=== PATIENT | female | born 1945 | race Caucasian/White ===

== ENCOUNTER 2020-07-14 12:22 | Inpatient (IN) | payer MEDICARE ==
--- NOTE | 2020-07-14 12:56 | ER Document Report ---
ED General - General Chief Complaint: Altered Mental Status Stated Complaint: AMS Time Seen by Provider: 07/14/20 12:56 Notes: Patient is a 74-year-old female that presents to the emergency department for chief complaint of confusion. states that over the past couple days the patient has been more confused than normal, she apparently had a fall with facial injury several months ago, and has not really recovered from it. She has been having hallucinations at times, and talking about things I do not make any sense so they decided to bring her to the emergency department. Patient states she is aching all over, having some nausea, but no other complaints at this time. Denies feeling short of breath, having fevers, chills or night sweats. She apparently has not had any nausea or vomiting or diarrhea. REVIEW OF SYSTEMS: Other than noted above, the 12 point review of systems was reviewed with the patient and were negative, all pertinent findings are included in the HPI. PHYSICAL EXAMINATION: Vital signs reviewed, nursing noted reviewed. GENERAL: Elderly female, no acute distress HEAD: Atraumatic, normocephalic. EYES: Eyes appear normal, sclera anicteric, conjunctiva are normal. ENT: Moist mucous membranes. NECK: Normal range of motion, supple without lymphadenopathy LUNGS: Breath sounds clear to auscultation bilaterally and equal. No wheezes rales or rhonchi. HEART: Regular rate and rhythm without murmurs EXTREMITIES: Nontender, good range of motion, no pitting or edema. NEUROLOGICAL: No focal neurological deficits. Moves all extremities spontaneously Motor and sensory grossly intact on exam. PSYCH: Patient is alert, but oriented only to person, not to year or location. 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" SKIN: Warm, Dry, normal turgor, no rashes or lesions noted on exposed skin - Related Data Allergies/Adverse Reactions: No Known Allergies Allergy (Unverified 07/14/20 13:31) Home Medications: morphine, gabapentin Past Medical History - Social History Smoking Status: Unknown if Ever Smoked Family History: Reviewed & Not Pertinent Patient has homicidal ideation: No Physical Exam - Vital signs Vitals: Temp Pulse Resp BP Pulse Ox 97.4 F 94 19 174/85 H 94 07/14/20 12:37 07/14/20 12:37 07/14/20 12:37 07/14/20 12:37 07/14/20 12:37 Course - Re-evaluation Re-evalutation: Patient seen and examined, vital signs reviewed, exam patient overall did not appear septic or ill, blood work was obtained, as well as urine testing, she does positive for opiates, she does take morphine at home, which could be contributing to her altered mental status, her urine was not convincing of UTI, some soft signs of it though and will place her on antibiotic, I do not feel the patient needs to be admitted to the hospital, it is possible this could be related to the patient's head injury she had a few months ago, she may need evaluation from psychiatry, but do not feel she needs to be admitted to the hospital. Has been made aware that he needs to come back to the hospital to pick her up to take her home. Prescription for Keflex provided. - Vital Signs Vital signs: Temp Pulse Resp BP Pulse Ox 97.4 F 94 17 148/103 H 97 07/14/20 12:37 07/14/20 12:37 07/14/20 14:53 07/14/20 14:53 07/14/20 14:53 - Laboratory Results Result Diagrams: 07/14/20 12:45 07/14/20 12:45 Laboratory Results Interpreted: 07/14/20 07/14/20 07/14/20 12:45 12:45 13:06 WBC 11.1 H RDW 15.0 H Lymph % (Auto) 7.9 L Absolute Neuts (auto) 9.5 H Seg Neutrophils % 85.8 H Potassium 3.4 L Carbon Dioxide 32 H Total Bilirubin 1.7 H AST 65 H Alkaline Phosphatase 176 H Urine Protein 100 H Urine Ketones 20 H Urine Blood SMALL H Critical Laboratory Results Reviewed: No Critical Results - Radiology Results Critical Radiology Results Reviewed: No Critical Results Discharge - Discharge Clinical Impression: Confusion UTI (urinary tract infection) Qualifiers: Urinary tract infection type: site unspecified Hematuria presence: without hematuria Qualified Code(s): N39.0 - Urinary tract infection, site not specified Condition: Stable Disposition: HOME, SELF-CARE Instructions: Altered Mental Status ([facility]) Additional Instructions: Please follow-up with your primary care physician, take the antibiotic as prescribed. If she is having worsening of her symptoms, or not improving, please return to the emergency department. I would recommend that her pain medications, be cut back, and please discuss this with her primary care physician. Prescriptions: Cephalexin Monohydrate [Keflex 500 mg Capsule] 500 mg PO BID 5 Days #10 capsule
[2020-07-14 13:07] LABS: ABSOLUTE LYMPHOCYTES (AUTO) 0.9 10^3/uL (0.5-4.7); ABSOLUTE MONOCYTES (AUTO) 0.7 10^3/uL (0.1-1.4); ABSOLUTE NEUT (AUTO) 9.5 10^3/uL (1.7-8.2); BASOPHILS % (AUTO) 0.3 % (0-2); EOSINOPHILS % (AUTO) 0.1 % (0-6); HEMATOCRIT 40.3 % (36.0-47.0); HEMOGLOBIN 13.6 g/dL (12.0-15.5); LYMPHOCYTES % (AUTO) 7.9 % (13-45); MEAN CORPUSCULAR HEMOGLOBIN 30.1 pg (27.0-33.4); MEAN CORPUSCULAR HGB CONC 33.7 g/dL (32.0-36.0); MEAN CORPUSCULAR VOLUME 89 fl (80-97); MONOCYTES % (AUTO) 5.9 % (3-13); PLATELET COUNT 221 10^3/uL (150-450); RED BLOOD COUNT 4.51 10^6/uL (3.72-5.28); SEGMENTED NEUTROPHILS % (AUTO) 85.8 % (42-78); TOTAL CELLS COUNTED % (AUTO) 100 %; WHITE BLOOD COUNT 11.1 10^3/uL (4.0-10.5)
[2020-07-14 13:24] LABS: ALBUMIN 4.3 g/dL (3.5-5.0); ALKALINE PHOSPHATASE 176 U/L (38-126); ANION GAP 7 (5-19); ASPARTATE AMINO TRANSFERASE 65 U/L (14-36); BILIRUBIN,DIRECT 0.3 mg/dL (0.0-0.4); BILIRUBIN,TOTAL 1.7 mg/dL (0.2-1.3); BLOOD UREA NITROGEN 11 mg/dL (7-20); CALCIUM 10.2 mg/dL (8.4-10.2); CARBON DIOXIDE 32 mmol/L (22-30); CHLORIDE 102 mmol/L (98-107); GLUCOSE 108 mg/dL (75-110); POTASSIUM 3.4 mmol/L (3.6-5.0); TOTAL PROTEIN 7.6 g/dL (6.3-8.2)
[2020-07-14 13:25] LABS: ALCOHOL < 10 mg/dL (NONE DETECTED)
[2020-07-14] MEDS ORDERED: NORMAL SALINE 500 ML IV ONE (13:26)
[2020-07-14 13:37] LABS: APPEARANCE,URINE CLEAR; BILIRUBIN,URINE NEGATIVE (NEGATIVE); COLOR,URINE YELLOW; GLUCOSE, URINE NEGATIVE (NEGATIVE); KETONES,URINE 20 mg/dL (NEGATIVE); LEUKOCYTE ESTERASE,URINE NEGATIVE (NEGATIVE); NITRITE,URINE NEGATIVE (NEGATIVE); PROTEIN,URINE 100 mg/dL (NEGATIVE); URINE SPECIFIC GRAVITY 1.011; UROBILINOGEN,URINE NEGATIVE mg/dL (<2.0)
[2020-07-14 13:50] LABS: URINE AMPHETAMINES SCREEN NEGATIVE; URINE BARBITURATES SCREEN NEGATIVE; URINE BENZODIAZEPINES SCREEN NEGATIVE; URINE COCAINE SCREEN NEGATIVE; URINE MARIJUANA (THC) SCREEN NEGATIVE; URINE METHADONE SCREEN NEGATIVE; URINE PHENCYCLIDINE SCREEN NEGATIVE
--- NOTE | 2020-07-14 14:28 | RADIOLOGY REPORT (SQ) ---
EXAM DESCRIPTION: CT HEAD WITHOUT IMAGES COMPLETED DATE/TIME: 07/14/2020 2:20 pm REASON FOR STUDY: altered mental status COMPARISON: None. TECHNIQUE: Axial images acquired through the brain without intravenous contrast. Images reviewed wi th bone, brain and subdural windows. Additional sagittal and coronal reconstructions were generated. Images stored on PACS. All CT scanners at this facility use dose modulation, iterative reconstruction, and/or weight based d osing when appropriate to reduce radiation dose to as low as reasonably achievable (ALARA). [facility]: Dose Right [facility]: CareDose [facility]: Dose Right [facility]: Teradose 4D [facility]: Smart Amicus RADIATION DOSE: CT Rad equipment meets quality standard of care and radiation dose reduction techniq ues were employed. CTDIvol: 55.2 mGy. DLP: 1222 mGy-cm. mGy. LIMITATIONS: None. FINDINGS: VENTRICLES: Prominent. CEREBRUM: No masses. No hemorrhage. No midline shift. Areas of low density in the white matter mos t likely due to chronic micro-vascular ischemic change. No evidence for acute infarction. CEREBELLUM: No masses. No hemorrhage. No alteration of density. No evidence for acute infarction. EXTRAAXIAL SPACES: Mild age-related involutional change. No fluid collections. No masses. ORBITS AND GLOBE: No intra- or extraconal masses. Normal contour of globe without masses. CALVARIUM: No fracture. PARANASAL SINUSES: No fluid or mucosal thickening. SOFT TISSUES: No mass or hematoma. OTHER: No other significant finding. IMPRESSION: MILD CHRONIC CHANGES OF ATROPHY AND MICROVASCULAR ISCHEMIA. NO ACUTE PROCESS. EVIDENCE OF ACUTE STROKE: NO. TECHNICAL DOCUMENTATION: JOB ID: [id number] Quality ID # [id number]: Final reports with documentation of one or more dose reduction techniques (e.g., Au tomated exposure control, adjustment of the mA and/or kV according to patient size, use of iterative reconstruction technique) 2010 [employer]- All Rights Reserved Reading location - IP/workstation name: [email or web address]
[2020-07-14] MEDS ORDERED: ONDANSETRON HCL INJ/PF 4 MG/2 ML SDV IV ONE (15:22)
[2020-07-14] MEDS ORDERED: ACETAMINOPHEN 325 MG TABLET PO ONE (15:22)
--- NOTE | 2020-07-14 15:24 | EKG REPORT ---
SEVERITY:- BORDERLINE ECG - SINUS RHYTHM BORDERLINE PROLONGED QT INTERVAL : Confirmed by: Sharif Murray MD 14-Jul-2020 15:22:53
--- NOTE | 2020-07-14 15:42 | RADIOLOGY REPORT (SQ) ---
EXAM DESCRIPTION: CHEST SINGLE VIEW IMAGES COMPLETED DATE/TIME: 07/14/2020 3:34 pm REASON FOR STUDY: weakness COMPARISON: None. EXAM PARAMETERS: NUMBER OF VIEWS: One view. TECHNIQUE: Single frontal radiographic view of the chest acquired. RADIATION DOSE: NA LIMITATIONS: None. FINDINGS: LUNGS AND PLEURA: Prominent interstitial markings most likely chronic interstitial lung di sease. No acute consolidation. No effusions or pneumothorax. MEDIASTINUM AND HILAR STRUCTURES: No masses. Contour normal. HEART AND VASCULAR STRUCTURES: Heart normal in size. Normal vasculature. BONES: No acute findings. HARDWARE: Postsurgical changes in the spine. OTHER: No other significant finding. IMPRESSION: Bilateral interstitial airspace disease most likely chronic. There are no old films dominick ilable for comparison. TECHNICAL DOCUMENTATION: JOB ID: [id number] 2010 [employer]- All Rights Reserved Reading location - IP/workstation name: [email or web address]
[2020-07-14] MEDS ORDERED: TUBERCULIN,PURIF.PROT.DERIV. 5 TU/0.1 ML TEST 1 ML VIAL ID ONE (16:12)
--- NOTE | 2020-07-14 18:00 | PSYCHOLOGICAL NOTE ---
Psych Note - Psych Note Date seen by psych provider: 07/14/20 Time seen by psych provider: 16:58 Psych Note: Reason for Consult: medication recommendations [id number] Patient is a 74 year old female who was admitted to the ED via EMS for altered mental status. Patient is being seen by case management, however behavioral health was consulted for psychiatric medication recommendations. Clinician attempted to engage with patient. She stated she did not know where she was at or where she lives. She denied history of mental health. Collateral: Binu, , 1657 attempted to call patients to obtain collateral. No answer at this time. 1755 attempted to call patients . No answer at this time. Patient was not alert or oriented to self, person, place, time and situation. Mood was euphoric and confused with congruent affect. She denies current SI/HI. Patient did not appear to be responding to internal stimuli as evidenced by fair eye contact and answering questions appropriately when addressed. Insight, judgment and impulse control were poor as evidenced by not knowing where and why she was in the ED. Clinical Presentation: confusion IVC Criteria per [place] GS 122C Dangerous to others Within the relevant past the individual No has inflicted or attempted to inflict or threatened to inflict serious bodily harm on another AND No that there is a reasonable probability that this conduct will be repeated. OR No has acted in such a way as to create a substantial risk of serious bodily harm to another AND No that there is a reasonable probability that this conduct will be repeated. OR No has engaged in extreme destruction of property AND NO that there is a reasonable probability that this conduct will be repeated. Previous episodes of dangerousness to others, when applicable, may be considered when determining reasonable probability of future dangerous conduct. Clear, cogent, and convincing evidence that an individual has committed a homicide in the relevant past is prima facie evidence of dangerousness to others. Dangerous to self Within the relevant past the individual has done any of the following: acted in such a way as to show ALL of the following: No The individual would be unable without care, supervision, and the continued assistance of others not otherwise available, to exercise self- control, judgment, and discretion in the conduct of the individual's daily responsibilities and social relations or to satisfy the individual's need for nourishment, personal or medical care, alf, or self-protection and safety. AND No There is a reasonable probability of the individual suffering serious physical debilitation within the near future unless adequate treatment is given. A showing of behavior that is grossly irrational, of actions that the individual is unable to control, of behavior that is grossly inappropriate to the situation, or of other evidence of severely impaired insight and judgment shall create a prima facie inference that the individual is unable to care for himself or herself. OR No has attempted suicide or threatened suicide AND No that there is a reasonable probability of suicide unless adequate treatment is given OR No has mutilated himself or herself or attempted to mutilate himself or herself AND No that there is a reasonable probability of serious self-mutilation unless adequate treatment is given. NOTE: Previous episodes of dangerousness to self, when applicable, may be considered when determining reasonable probability of physical debilitation, suicide, or self-mutilation. Medication recommendations per [facility] contracted psychiatrist, Dr. aKnu SWEENEY, are as follows: start Depakote 250mg bid, Buspar 5mg bid, and Clonidine 0.1mg at night; decrease Gabapentin 600mg 3 times a day Impression\plan: Patient is cleared from psychiatric services. She was seen in the ED by case management for an altered mental status and confusion. Medication recommendations have been made for assistance. Case management is working with patient and family on placement and additional supports. Dr. Tobias was consulted to care management of this patient; attending physicians in agreement with recommendations and disposition.
[2020-07-14] MEDS: CEPHALEXIN 500 MG CAPSULE PO SCH (18:46)
[2020-07-14] MEDS ORDERED: ONDANSETRON 4 MG TAB.RAPDIS PO ONE (21:12)
[2020-07-14] MEDS ORDERED: ACETAMINOPHEN 325 MG TABLET PO PRN (21:14)
[2020-07-14] MEDS: CLONIDINE HCL 0.1 MG TABLET PO SCH (21:54)
[2020-07-14] MEDS: NYSTATIN TOPICAL POWDER 15 GM TP SCH (21:56)
[2020-07-15 02:25] LABS: C DIFFICILE GDH POSITIVE (NEGATIVE)
[2020-07-15] MEDS ORDERED: MELATONIN 5 MG TABLET PO ONE (02:25)
[2020-07-15] MEDS ORDERED: METRONIDAZOLE 500 MG TABLET PO SCH (06:15)
--- NOTE | 2020-07-15 06:34 | ER Document Report ---
Doctor's Note Notes: 07/15/20 06:32 Patient remains a social hold waiting for possible SNF placement as is no longer able to take care of her at home. Patient has had several loose stools in ED and nursing notes that one looked/smelled like C. difficile so they sent sample for C. difficile which was positive. I evaluated patient and she endorses having diarrhea recently but unable to say for what duration. Patient denies any abdominal pain or fever. Patient well-appearing, vitals remains stable, patient has no abdominal tenderness with completely normal abdominal exam. Started patient on p.o. Flagyl for mild C. difficile infection in the ED and put prescription in her chart for when she is placed. Patient denies any concerns at this time.
[2020-07-15 08:05] LABS: ABSOLUTE MONOCYTES (AUTO) 0.8 10^3/uL (0.1-1.4); ABSOLUTE NEUT (AUTO) 10.2 10^3/uL (1.7-8.2); BASOPHILS % (AUTO) 0.2 % (0-2); HEMATOCRIT 40.8 % (36.0-47.0); HEMOGLOBIN 13.9 g/dL (12.0-15.5); LYMPHOCYTES % (AUTO) 8.5 % (13-45); MEAN CORPUSCULAR VOLUME 88 fl (80-97); MONOCYTES % (AUTO) 6.8 % (3-13); PLATELET COUNT 226 10^3/uL (150-450); RED BLOOD COUNT 4.64 10^6/uL (3.72-5.28); SEGMENTED NEUTROPHILS % (AUTO) 84.5 % (42-78); TOTAL CELLS COUNTED % (AUTO) 100 %; WHITE BLOOD COUNT 12.1 10^3/uL (4.0-10.5)
[2020-07-15 08:26] LABS: ANION GAP 13 (5-19); BLOOD UREA NITROGEN 11 mg/dL (7-20); CALCIUM 9.9 mg/dL (8.4-10.2); CARBON DIOXIDE 30 mmol/L (22-30); CHLORIDE 99 mmol/L (98-107); GLUCOSE 101 mg/dL (75-110); POTASSIUM 3.1 mmol/L (3.6-5.0)
[2020-07-15] MEDS: NYSTATIN TOPICAL POWDER 15 GM TP SCH ×3 (10:37→18:15)
[2020-07-15] MEDS: BUSPIRONE HCL 10 MG TABLET PO SCH ×2 (10:38→18:15)
[2020-07-15] MEDS: CEPHALEXIN 500 MG CAPSULE PO SCH ×2 (10:38→18:15)
[2020-07-15] MEDS: DIVALPROEX SODIUM 250 MG TABLET.DR PO SCH ×2 (10:38→18:14)
[2020-07-15] MEDS ORDERED: POTASSI CL 20 MEQ/50 ML RIDER 20 MEQ/50 ML RTUPB IV ONE (11:55)
[2020-07-15] MEDS ORDERED: VANCOMYCIN HCL INJ 500 MG VIAL PO ONE (12:06)
[2020-07-15] MEDS ORDERED: POTASSIUM CHLORIDE 20 MEQ PACKET PO ONE (13:27)
[2020-07-15] MEDS: CLONIDINE HCL 0.1 MG TABLET PO SCH (21:20)
[2020-07-16] MEDS: BUSPIRONE HCL 10 MG TABLET PO SCH ×2 (11:04→17:51)
[2020-07-16] MEDS: CEPHALEXIN 500 MG CAPSULE PO SCH ×2 (11:04→17:52)
[2020-07-16] MEDS: DIVALPROEX SODIUM 250 MG TABLET.DR PO SCH ×2 (11:04→17:52)
[2020-07-16] MEDS: NYSTATIN TOPICAL POWDER 15 GM TP SCH ×3 (11:04→19:04)
[2020-07-16] MEDS ORDERED: NORMAL SALINE 1000 ML 1,000 ML IV ONE (18:37)
--- NOTE | 2020-07-16 18:40 | ER Document Report ---
Doctor's Note Notes: 07/16/20 18:34 Patient resting comfortably today. P.o. intake has not been very good today although patient has eaten and patient has had a bowel movement today as well patient's laboratories most recently showed that there was a potassium of 3.1. Plan is to replace potassium for patient intravenously along with some fluids and the repeat test of CBC and CMP tomorrow. Continue to treat patient for her C. difficile induced diarrhea and continue to maintain patient until she can receive placement in a group home home facility.
[2020-07-16] MEDS ORDERED: POTASSI CL 20 MEQ/50 ML RIDER 20 MEQ/50 ML RTUPB IV SCH (18:45)
[2020-07-16] MEDS ORDERED: POTASSIUM CHLORIDE 10 MEQ TABLET.ER PO ONE (19:44)
[2020-07-16] MEDS ORDERED: POTASSIUM CHLORIDE 10 MEQ TABLET.ER PO SCH (20:00)
[2020-07-16] MEDS: CLONIDINE HCL 0.1 MG TABLET PO SCH (22:08)
[2020-07-17 06:55] LABS: ALBUMIN 4.3 g/dL (3.5-5.0); ALKALINE PHOSPHATASE 143 U/L (38-126); ANION GAP 10 (5-19); ASPARTATE AMINO TRANSFERASE 86 U/L (14-36); BILIRUBIN,DIRECT 0.3 mg/dL (0.0-0.4); BILIRUBIN,TOTAL 1.4 mg/dL (0.2-1.3); BLOOD UREA NITROGEN 22 mg/dL (7-20); CALCIUM 9.8 mg/dL (8.4-10.2); CARBON DIOXIDE 32 mmol/L (22-30); CHLORIDE 104 mmol/L (98-107); GLUCOSE 106 mg/dL (75-110); POTASSIUM 3.2 mmol/L (3.6-5.0)
[2020-07-17] MEDS: BUSPIRONE HCL 10 MG TABLET PO SCH ×2 (10:28→18:37)
[2020-07-17] MEDS: NYSTATIN TOPICAL POWDER 15 GM TP SCH ×3 (10:28→18:42)
[2020-07-17] MEDS: CEPHALEXIN 500 MG CAPSULE PO SCH (10:29)
[2020-07-17] MEDS: DIVALPROEX SODIUM 250 MG TABLET.DR PO SCH ×3 (10:29→19:09)
--- NOTE | 2020-07-17 11:06 | ER Document Report ---
Doctor's Note Notes: 07/17/20 11:01 Patient sleeping and resting comfortably at this time. Patient continues to have loose diarrheal stools we will repeat a stool specimen today to see if patient is still positive for C. difficile. Patient has completed her antibiotic treatment for such. Patient has a low potassium and has been receiving p.o. potassium supplement. Patient has a laboratory evaluation CBC and CMP this a.m. We will also reach out to case management regarding placement of this patient in a long-term facility. 07/17/20 15:08 Nurse reported to me that patient's laboratories have some of them resulted showing that patient has a 16,000 white count and a fever, and dehydration. Patient's urine has been collected that shows a cloudy urine. Patient is currently having a sepsis work-up including blood cultures x2 lactic acid IV bolus of normal saline and IV antibiotics of vancomycin and cefepime. Presumptive diagnosis at this time is urinary tract infection. An acute abdominal series has been ordered to determine patient's GI tract is moving and without any kind of obstructive pattern and chest x-ray to determine if there is any pneumonia. Patient is having a failure to thrive and not been taking p.o. well over the last 24 hours patient has a low potassium was today of 3.2 slight improvement from yesterday of 3.1. I will also add potassium supplement to patient's IV fluids. Plan is to discuss once laboratory results have been and x-ray results have been obtained to discuss with the hospitalist service about admitting patient to an inpatient status at this time. Patient is on a social hold due to her stating he cannot manage his at home anymore she has dementia and her C. difficile diarrhea became too much for him too much of a burden for him to manage her at home so patient was placed in the ED pending group home facility transfer once accepted. 07/17/20 17:52 Laboratory results have shown that there is no evidence for urinary tract infection or pneumonia on chest x-ray. Patient does have an elevated white blood cell count and a temperature spike today. Most likely this is due to her C. difficile which is still present. Discussed case with the inpatient hospitalistand Dr. Cameron has accepted patient as a inpatient admit to medical floor. Discharge - Discharge Clinical Impression: Confusion, Clostridium difficile infection, Failure to thrive, Leukocytosis UTI (urinary tract infection) Qualifiers: Urinary tract infection type: site unspecified Hematuria presence: without hematuria Qualified Code(s): N39.0 - Urinary tract infection, site not specified Condition: Fair Disposition: ADMITTED INPATIENT Admitting Provider: Rakesh Unit Admitted: Medical Floor Instructions: Altered Mental Status ([facility]) Additional Instructions: C. (Clostridium) Difficile Infection C. difficile bacteria are everywhere - in soil, air, water, human and animal feces, and on most surfaces. The bacteria don't create problems until they grow in abnormally large numbers in the intestinal tract of people taking antibiotics or other antimicrobial drugs. Then, C. difficile can cause symptoms ranging from diarrhea to life-threatening inflammations of the colon. According to the Centers for Disease Control and Prevention, each year in the [place] C. difficile is responsible for tens of thousands of cases of diarrhea and at least 5,000 deaths. And the problem is getting worse. The number of C. difficile infections doubled between 1992 and 2002, with most of the increase coming after 1999. Your intestinal tract contains hundreds of kinds of bacteria (intestinal sarah). Many are essential, helping to synthesize certain vitamins and stimulating the immune system. And some play a hubbard role in suppressing the growth of harmful organisms. But when you take an antibiotic to treat an infection, it often destroys these beneficial bacteria as well as the bacteria that's causing your illness. Without enough healthy bacteria, dangerous pathoge ns such as C. difficile can quickly grow out of control. Once it takes hold, C. difficile can produce two virulent toxins that attack the lining of the intestine. The toxins destroy cells and produce pseudomembranes - telltale patches (plaques) of inflammatory cells and decaying cellular debris on the interior surface of the colon. Almost any antibiotic can cause harmful bacteria to proliferate in the intestine, but ampicillin, amoxicillin, clindamycin, fluoroquinolones and cephalosporins are most often implicated in C. difficile infections. The use of broad-spectrum drugs that target a wide range of bacteria and the taking of antibiotics for a prolonged period increase the chance of infection. Other antimicrobials, including antiviral and antifungal drugs, and chemotherapy medic ations also can lead to an increased risk of infection with C. difficile. It's also a growing problem among otherwise healthy people. And although the infection can usually be controlled with antibiotics, virulent strains of C. difficile are now appearing that resist treatment with common medications. Please follow-up with your primary care physician, take the antibiotics as prescribed. If she is having worsening of her symptoms, belly pain, bloody stool, or frequent stool, worsening confusion,, or not improving, please return to the emergency department. I would recommend that her pain medications, be cut back, and please discuss this with her primary care physician. Prescriptions: Metronidazole [Flagyl 500 mg Tablet] 500 mg PO Q8H 14 Days #42 tablet Cephalexin Monohydrate [Keflex 500 mg Capsule] 500 mg PO BID 5 Days #10 capsule
[2020-07-17 12:38] LABS: ABSOLUTE LYMPHOCYTES (AUTO) 1.6 10^3/uL (0.5-4.7); ABSOLUTE MONOCYTES (AUTO) 1.9 10^3/uL (0.1-1.4); ABSOLUTE NEUT (AUTO) 13.1 10^3/uL (1.7-8.2); BASOPHILS % (AUTO) 0.2 % (0-2); HEMATOCRIT 52.6 % (36.0-47.0); LYMPHOCYTES % (AUTO) 9.5 % (13-45); MEAN CORPUSCULAR HEMOGLOBIN 29.7 pg (27.0-33.4); MEAN CORPUSCULAR HGB CONC 33.3 g/dL (32.0-36.0); MEAN CORPUSCULAR VOLUME 89 fl (80-97); MONOCYTES % (AUTO) 11.3 % (3-13); PLATELET COUNT 159 10^3/uL (150-450); RED CELL DISTRIBUTION WIDTH 15.4 % (11.5-14.0); TOTAL CELLS COUNTED % (AUTO) 100 %; WHITE BLOOD COUNT 16.6 10^3/uL (4.0-10.5)
[2020-07-17 12:40] LABS: HEMOGLOBIN 17.5 g/dL (12.0-15.5)
[2020-07-17] MEDS ORDERED: VANCOMYCIN HCL INJ 1000 MG VIAL IV ONE (15:02)
[2020-07-17] MEDS ORDERED: CEFEPIME 2 GM/D5W RTU 2 GM/50 ML RTUPB IV ONE ×2 (15:02→18:28)
[2020-07-17] MEDS ORDERED: ACETAMINOPHEN 1,000 MG/100 ML RTUPB IV ONE ×2 (15:06→18:30)
[2020-07-17 15:46] LABS: APPEARANCE,URINE SLIGHTLY-CLOUDY; BILIRUBIN,URINE NEGATIVE (NEGATIVE); COLOR,URINE AMBER; GLUCOSE, URINE NEGATIVE (NEGATIVE); KETONES,URINE TRACE mg/dL (NEGATIVE); LEUKOCYTE ESTERASE,URINE NEGATIVE (NEGATIVE); NITRITE,URINE NEGATIVE (NEGATIVE); PROTEIN,URINE >=500 mg/dL (NEGATIVE); URINE SPECIFIC GRAVITY 1.025; UROBILINOGEN,URINE NEGATIVE mg/dL (<2.0)
--- NOTE | 2020-07-17 15:46 | RADIOLOGY REPORT (SQ) ---
EXAM DESCRIPTION: ACUTE ABDOMEN SERIES IMAGES COMPLETED DATE/TIME: 07/17/2020 2:22 pm REASON FOR STUDY: fever/dehydration/failure to thrive/ diarrhea COMPARISON: None. NUMBER OF VIEWS: Three views. TECHNIQUE: Frontal chest, supine abdomen and upright/decubitus abdomen radiographic images acquired. LIMITATIONS: None. FINDINGS: CHEST: Lungs clear of infiltrates. FREE AIR: None. No abnormal gas collections. BOWEL GAS PATTERN: Nonobstructive pattern. No dilated loops or air fluid levels. CALCIFICATIONS: No suspicious calcifications. HARDWARE: Posterior fusion throughout the entire thoracic and lumbar spine to the sacrum and pelvis. No evidence of hardware fracture or loosening. SOFT TISSUES: No gross mass or suggestion of organomegaly. BONES: No acute fracture. No worrisome bone lesions. OTHER: No other significant finding. IMPRESSION: NO RADIOGRAPHIC EVIDENCE FOR ACUTE ABDOMINAL DISEASE. TECHNICAL DOCUMENTATION: JOB ID: [id number] 2010 [employer]- All Rights Reserved Reading location - IP/workstation name: [email or web address]
[2020-07-17] MEDS ORDERED: CEFEPIME 1 GM/D5W RTU 0 GM/0 ML RTUPB IV ONE (17:56)
[2020-07-17] MEDS ORDERED: VANCOMYCIN HCL INJ 1000 MG VIAL ONE (17:58)
[2020-07-17] MEDS: VANCOMYCIN HCL INJ 500 MG VIAL PO SCH (18:33)
[2020-07-17] MEDS ORDERED: DEXTROSE 5%-1/2 NORMAL SALINE 1,000 ML IV ONE (18:38)
[2020-07-17] MEDS: NORMAL SALINE 1000 ML 1,000 ML IV PRN ×2 (18:45→21:18)
--- NOTE | 2020-07-17 19:15 | PDOC H&P ---
History of Present Illness Admission Date/PCP: 07/17/20 18:07 Patient complains of: none History of Present Illness: BRIA ENRIQUEZ is a 74 year old female with history of dementia, falls who was brought in to the ED on 07/14 for confusion. She had a fall with facial injury several months ago, and has not really recovered from it per spouse. She had been having hallucinations, aching, nausea. In the ED she is diagnosed with C. diff infection, and since her spouse is unable to take care of her, she has been an ED hold awaiting placement. Clinically she was noted to be deteriorating today, with neutrophilia, fever of 100F, hence after treatment with IV Vanco /cefepime and IVF, she is requested admission. Past Medical History Medical History: Other - unable to obtain from patient/chart outside of dementia Endocrine Medical History: Reports: Diabetes Mellitus Type 2 Past Surgical History Past Surgical History: Reports: Other - unable to obtain Social History Smoking Status: Unknown if Ever Smoked Past Social History Note: unable to obtain from patient or spouse Family History Family History: Reviewed & Not Pertinent Family History: unable to obtain from patient or family Parental Family History Reviewed: No - patient unable to provide Children Family History Reviewed: Unknown Sibling(s) Family History Reviewed.: Unknown Medication/Allergy Home Medications: Cephalexin Monohydrate [Keflex 500 mg Capsule] 500 mg PO BID 5 Days #10 capsule 07/14/20 Gabapentin 600 mg PO Q4H 07/14/20 Gabapentin 600 mg PO QHS 07/14/20 Morphine Sulfate [Ms Contin] 30 mg PO Q12H 07/14/20 Metronidazole [Flagyl 500 mg Tablet] 500 mg PO Q8H 14 Days #42 tablet 07/15/20 Allergies/Adverse Reactions: No Known Allergies Allergy (Unverified 07/14/20 13:31) Review of Systems ROS unobtainable: Due to mental status Physical Exam Vital Signs: Temp Pulse Resp BP Pulse Ox 97.7 F 110 H 20 149/77 H 100 07/17/20 18:09 07/17/20 18:09 07/17/20 18:09 07/17/20 18:09 07/17/20 18:09 Intake & Output 07/16/20 07/17/20 07/18/20 06:59 06:59 06:59 Intake Total 10 Balance 10 General appearance: PRESENT: no acute distress Head exam: PRESENT: atraumatic, other - facial bruising at maxillary region bilaterally Eye exam: PRESENT: PERRLA Mouth exam: PRESENT: moist Teeth exam: PRESENT: poor dentation Throat exam: PRESENT: other - unable to assess, patient will not open mouth wide enough Neck exam: ABSENT: tenderness Respiratory exam: PRESENT: clear to auscultation zara Cardiovascular exam: PRESENT: RRR Pulses: PRESENT: normal carotid pulses Vascular exam: PRESENT: normal capillary refill GI/Abdominal exam: PRESENT: distended, hypoactive bowel sounds, tenderness Extremities exam: PRESENT: +1 edema Musculoskeletal exam: PRESENT: full ROM Neurological exam: PRESENT: awake, other - unable to assess neuro exam, patient does not follow basic commands Psychiatric exam: PRESENT: flat affect Skin exam: PRESENT: pallor Results Laboratory Results: 07/17/20 11:49 07/17/20 06:08 07/17/20 07/17/20 07/17/20 06:08 06:08 08:57 WBC Cancelled Cancelled RBC Cancelled Cancelled Hgb Cancelled Cancelled Hct Cancelled Cancelled MCV Cancelled Cancelled MCH Cancelled Cancelled MCHC Cancelled Cancelled RDW Cancelled Cancelled Plt Count Cancelled Cancelled Seg Neutrophils % Cancelled Cancelled Sodium 146.0 H Potassium 3.2 L Chloride 104 Carbon Dioxide 32 H Anion Gap 10 BUN 22 H Creatinine 1.14 Est GFR ( Amer) 56 L Glucose 106 Lactic Acid Calcium 9.8 Total Bilirubin 1.4 H AST 86 H Alkaline Phosphatase 143 H Total Protein 8.0 Albumin 4.3 Urine Color Urine Appearance Urine pH Ur Specific [place] Urine Protein Urine Glucose (UA) Urine Ketones Urine Blood Urine Nitrite Ur Leukocyte Esterase Urine WBC (Auto) Urine RBC (Auto) 07/17/20 07/17/20 07/17/20 11:49 15:04 15:50 WBC 16.6 H RBC 5.90 H Hgb 17.5 H D Hct 52.6 H MCV 89 MCH 29.7 MCHC 33.3 RDW 15.4 H Plt Count 159 Seg Neutrophils % 79.0 H Sodium Potassium Chloride Carbon Dioxide Anion Gap BUN Creatinine Est GFR ( Amer) Glucose Lactic Acid 1.8 Calcium Total Bilirubin AST Alkaline Phosphatase Total Protein Albumin Urine Color JAME Urine Appearance SLIGHTLY-CLOUDY Urine pH 6.0 Ur Specific [place] 1.025 Urine Protein >=500 H Urine Glucose (UA) NEGATIVE Urine Ketones TRACE H Urine Blood SMALL H Urine Nitrite NEGATIVE Ur Leukocyte Esterase NEGATIVE Urine WBC (Auto) 3 Urine RBC (Auto) 3 Impressions: Head CT 07/14/20 13:44 IMPRESSION: MILD CHRONIC CHANGES OF ATROPHY AND MICROVASCULAR ISCHEMIA. NO ACUTE PROCESS. EVIDENCE OF ACUTE STROKE: NO. Chest X-Ray 07/14/20 15:16 IMPRESSION: Bilateral interstitial airspace disease most likely chronic. There are no old films available for comparison. Acute Abdomen Series 07/17/20 15:07 IMPRESSION: NO RADIOGRAPHIC EVIDENCE FOR ACUTE ABDOMINAL DISEASE. Assessment and Plan - Diagnosis (1) Acute metabolic encephalopathy Is this a current diagnosis for this admission?: Yes (2) Traumatic brain injury Qualifiers: Encounter type: sequela Is this a current diagnosis for this admission?: No (3) Clostridium difficile infection Is this a current diagnosis for this admission?: Yes (4) Failure to thrive Qualifiers: Failure to thrive age range: in adult Qualified Code(s): R62.7 - Adult failure to thrive Is this a current diagnosis for this admission?: Yes - Plan Summary Summary: 74 yo F with encephalopathy since her fall a few months ago, remains as a ER hold and clinically worsening, hence admission is requested 1. Dehydration, failure to thrive with C. diff colitis: PO vancomycin, PPN started 2. Chronic pain? awaiting discussion with family to obtain home meds in 3. TBI/dementia: patient unable to participate in her care I have attempted to reach spouse x2 and unable to obtain any additional history other than what is seen on the records and noted by the ED physician. Patient is unable to participate in her care - Time Time Spent with patient: 15-24 minutes Anticipated Discharge Disposition: Nursing Home Facility Anticipated Discharge Timeframe: within 72 hours - Inpatient Certification Medical Necessity: Need For IV Fluids, Risk of Complication if Not Cared For in Hospital
[2020-07-17] MEDS ORDERED: LABETALOL HCL INJ 20 MG/4 ML DISP.SYRIN IV PRN (22:05)
[2020-07-17] MEDS ORDERED: VANCOMYCIN HCL INJ 500 MG VIAL PO ONE (22:45)
[2020-07-17] MEDS: POTASSI CL 20 MEQ/50 ML RIDER 20 MEQ/50 ML RTUPB IV SCH ×2 (22:58→23:02)
[2020-07-17] MEDS: CLONIDINE HCL 0.1 MG TABLET PO SCH (22:59)
[2020-07-17] MEDS ORDERED: VANCOMYCIN HCL INJ 500 MG VIAL ONE (23:46)
[2020-07-18] MEDS: POTASSI CL 20 MEQ/50 ML RIDER 20 MEQ/50 ML RTUPB IV SCH ×2 (03:07→03:52)
[2020-07-18] MEDS: ENOXAPARIN SODIUM INJ 40 MG/0.4 ML DISP.SYRIN SUBCUT SCH ×2 (03:52→10:47)
[2020-07-18 05:58] LABS: ALBUMIN 3.1 g/dL (3.5-5.0); ALKALINE PHOSPHATASE 87 U/L (38-126); ANION GAP 5 (5-19); ASPARTATE AMINO TRANSFERASE 63 U/L (14-36); BILIRUBIN,DIRECT 0.3 mg/dL (0.0-0.4); BILIRUBIN,TOTAL 1.4 mg/dL (0.2-1.3); BLOOD UREA NITROGEN 25 mg/dL (7-20); CALCIUM 8.7 mg/dL (8.4-10.2); CARBON DIOXIDE 27 mmol/L (22-30); CHLORIDE 112 mmol/L (98-107); GLUCOSE 106 mg/dL (75-110); POTASSIUM 3.5 mmol/L (3.6-5.0); TOTAL PROTEIN 6.1 g/dL (6.3-8.2)
[2020-07-18 06:03] LABS: ABSOLUTE LYMPHOCYTES (AUTO) 1.3 10^3/uL (0.5-4.7); ABSOLUTE MONOCYTES (AUTO) 0.8 10^3/uL (0.1-1.4); ABSOLUTE NEUT (AUTO) 8.6 10^3/uL (1.7-8.2); BASOPHILS % (AUTO) 0.2 % (0-2); EOSINOPHILS % (AUTO) 0.4 % (0-6); HEMATOCRIT 43.4 % (36.0-47.0); LYMPHOCYTES % (AUTO) 12.1 % (13-45); MEAN CORPUSCULAR HEMOGLOBIN 29.9 pg (27.0-33.4); MEAN CORPUSCULAR HGB CONC 33.3 g/dL (32.0-36.0); MEAN CORPUSCULAR VOLUME 90 fl (80-97); MONOCYTES % (AUTO) 7.5 % (3-13); PLATELET COUNT 112 10^3/uL (150-450); RED BLOOD COUNT 4.83 10^6/uL (3.72-5.28); RED CELL DISTRIBUTION WIDTH 15.1 % (11.5-14.0); SEGMENTED NEUTROPHILS % (AUTO) 79.8 % (42-78); TOTAL CELLS COUNTED % (AUTO) 100 %; WHITE BLOOD COUNT 10.8 10^3/uL (4.0-10.5)
[2020-07-18 06:07] LABS: HEMOGLOBIN 14.5 g/dL (12.0-15.5)
[2020-07-18] MEDS: VANCOMYCIN HCL INJ 500 MG VIAL PO SCH ×4 (06:19→17:27)
[2020-07-18] MEDS: NYSTATIN TOPICAL POWDER 15 GM TP SCH ×3 (10:47→17:27)
[2020-07-18] MEDS: BUSPIRONE HCL 10 MG TABLET PO SCH ×2 (10:47→17:26)
[2020-07-18] MEDS: DIVALPROEX SODIUM 250 MG TABLET.DR PO SCH ×2 (10:47→17:26)
--- NOTE | 2020-07-18 13:28 | PDOC PROGRESS REPORT ---
Subjective Date:: 07/18/20 Subjective:: patient has no complaints, RN has no concerns Reason For Visit: C. DIFF COLITIS Physical Exam Vital Signs: Temp Pulse Resp BP Pulse Ox 98.1 F 91 17 170/89 H 96 07/18/20 10:50 07/18/20 10:50 07/18/20 10:50 07/18/20 10:50 07/18/20 10:50 Intake & Output 07/17/20 07/18/20 07/19/20 06:59 06:59 06:59 Intake Total 1050 1100 Balance 1050 1100 General appearance: PRESENT: no acute distress Respiratory exam: PRESENT: clear to auscultation zara Cardiovascular exam: PRESENT: RRR GI/Abdominal exam: PRESENT: tenderness - generalized with voluntary guarding Psychiatric exam: PRESENT: flat affect Results Laboratory Results: 07/18/20 05:20 07/18/20 05:20 07/17/20 07/17/20 07/18/20 15:04 15:50 05:20 WBC 10.8 H RBC 4.83 Hgb 14.5 D Hct 43.4 MCV 90 MCH 29.9 MCHC 33.3 RDW 15.1 H Plt Count 112 L Seg Neutrophils % 79.8 H Sodium Potassium Chloride Carbon Dioxide Anion Gap BUN Creatinine Est GFR ( Amer) Glucose Lactic Acid 1.8 Calcium Phosphorus Magnesium Total Bilirubin AST Alkaline Phosphatase Total Protein Albumin Urine Color JAME Urine Appearance SLIGHTLY-CLOUDY Urine pH 6.0 Ur Specific [place] 1.025 Urine Protein >=500 H Urine Glucose (UA) NEGATIVE Urine Ketones TRACE H Urine Blood SMALL H Urine Nitrite NEGATIVE Ur Leukocyte Esterase NEGATIVE Urine WBC (Auto) 3 Urine RBC (Auto) 3 07/18/20 05:20 WBC RBC Hgb Hct MCV MCH MCHC RDW Plt Count Seg Neutrophils % Sodium 143.6 Potassium 3.5 L Chloride 112 H Carbon Dioxide 27 Anion Gap 5 BUN 25 H Creatinine 0.87 Est GFR ( Amer) > 60 Glucose 106 Lactic Acid Calcium 8.7 Phosphorus 3.0 Magnesium 1.9 Total Bilirubin 1.4 H AST 63 H Alkaline Phosphatase 87 Total Protein 6.1 L Albumin 3.1 L Urine Color Urine Appearance Urine pH Ur Specific [place] Urine Protein Urine Glucose (UA) Urine Ketones Urine Blood Urine Nitrite Ur Leukocyte Esterase Urine WBC (Auto) Urine RBC (Auto) 07/18/20 05:20 CK-MB (CK-2) 2.31 Impressions: Head CT 07/14/20 13:44 IMPRESSION: MILD CHRONIC CHANGES OF ATROPHY AND MICROVASCULAR ISCHEMIA. NO ACUTE PROCESS. EVIDENCE OF ACUTE STROKE: NO. Chest X-Ray 07/14/20 15:16 IMPRESSION: Bilateral interstitial airspace disease most likely chronic. There are no old films available for comparison. Acute Abdomen Series 07/17/20 15:07 IMPRESSION: NO RADIOGRAPHIC EVIDENCE FOR ACUTE ABDOMINAL DISEASE. Assessment and Plan - Diagnosis (1) Acute metabolic encephalopathy Is this a current diagnosis for this admission?: Yes (2) Traumatic brain injury Qualifiers: Encounter type: sequela Is this a current diagnosis for this admission?: No (3) Clostridium difficile infection Is this a current diagnosis for this admission?: Yes (4) Failure to thrive Qualifiers: Failure to thrive age range: in adult Qualified Code(s): R62.7 - Adult failure to thrive Is this a current diagnosis for this admission?: Yes - Plan Summary Summary: 74 yo F with encephalopathy since her fall a few months ago, remains as a ER hold and clinically worsening, hence admission is requested 1. Dehydration, failure to thrive with C. diff colitis: PO vancomycin, PPN started, clinically she appears a little better today 2. Chronic pain: attempted to reach spouse x2 today, going straight to 3. TBI/dementia: patient unable to participate in her care, needs SNF placement - Time Time Spent with patient: 15-24 minutes Anticipated Discharge Disposition: Longterm Facility Anticipated Discharge Timeframe: within 48 hours
[2020-07-18 14:01] LABS: C DIFFICILE GDH POSITIVE (NEGATIVE)
[2020-07-18] MEDS: HYDRALAZINE HCL 10 MG TABLET PO SCH (17:26)
[2020-07-19] MEDS: VANCOMYCIN HCL INJ 500 MG VIAL PO SCH ×4 (00:02→18:37)
[2020-07-19] MEDS: HYDRALAZINE HCL 10 MG TABLET PO SCH ×4 (00:03→18:35)
[2020-07-19] MEDS: CLONIDINE HCL 0.1 MG TABLET PO SCH (00:03)
[2020-07-19] MEDS ORDERED: IPRATROPIUM/ALBUTEROL 0.5-2.5 MG/3 ML AMPUL NEB PRN (01:24)
[2020-07-19] MEDS: ENOXAPARIN SODIUM INJ 40 MG/0.4 ML DISP.SYRIN SUBCUT SCH (09:23)
[2020-07-19] MEDS: NYSTATIN TOPICAL POWDER 15 GM TP SCH ×3 (09:32→18:35)
[2020-07-19] MEDS: DIVALPROEX SODIUM 250 MG TABLET.DR PO SCH ×2 (09:32→18:34)
[2020-07-19] MEDS: BUSPIRONE HCL 10 MG TABLET PO SCH ×2 (09:32→18:34)
[2020-07-19] MEDS: GABAPENTIN 300 MG CAPSULE PO SCH (13:36)
[2020-07-19] MEDS ORDERED: DEXTROSE 40% GEL 15 GM TUBE PO PRN ×2 (20:33)
[2020-07-19] MEDS ORDERED: GLUCAGON,HUMAN RECOMB 1 MG INJ IM PRN (20:33)
[2020-07-19] MEDS ORDERED: DEXTROSE 50%-WATER 25 GM/50 ML DISP.SYRIN IV PRN ×2 (20:33)
--- NOTE | 2020-07-19 20:46 | PDOC PROGRESS REPORT ---
Subjective Date:: 07/19/20 Subjective:: The patient is a 74-year-old female with a limited past medical history due to her altered mental status and family member being poor historian, but presumed to have DM2, hypertension, GERD, iron deficiency anemia, possibly CHF, and opiate dependent chronic pain based on her home medication regiment. Patient presented to the emergency department 07/14/2024 chronic altered mental status that had progressively worsened over the last year or more resulting in the patient's 's inability to care for her at home. She remained as a social hold while awaiting SNF placement when she became acutely ill with C. difficile diarrhea. The patient was seen on morning rounds. She is found resting in bed, comfortably, on room air. She is alert and oriented to self, the [facility], "[facility]", year 1998, and [employer] [place]; does not reorientate easily and becomes flustered when attempting to correct her orientation status. Patient was noted to be restless; frequently lifting her arms and legs into the air. Stops mid sentence and mid word frequently; resumes speaking though on a different thought course. Very difficult to follow. She does appear to be comfortable but is not noted to be in any acute distress at this time. Attempted to call patient's husbands; no answer. Discussed plan of care with nursing. Reason For Visit: C. DIFF COLITIS Physical Exam Vital Signs: Temp Pulse Resp BP Pulse Ox 97.8 F 93 14 146/80 H 96 07/19/20 11:20 07/19/20 11:51 07/19/20 11:51 07/19/20 11:20 07/19/20 11:51 Intake & Output 07/18/20 07/19/20 07/20/20 06:59 06:59 06:59 Intake Total 1050 1360 240 Balance 1050 1360 240 Weight 83 kg General appearance: PRESENT: no acute distress, cooperative, obese, well-d eveloped, well-nourished Head exam: PRESENT: atraumatic, normocephalic Eye exam: PRESENT: conjunctiva pink, EOMI, PERRLA. ABSENT: scleral icterus Mouth exam: PRESENT: moist, tongue midline Teeth exam: PRESENT: poor dentation Respiratory exam: PRESENT: clear to auscultation zara, symmetrical, unlabored, other - room air. ABSENT: rales, rhonchi, wheezes Cardiovascular exam: PRESENT: RRR, +S1, +S2. ABSENT: diastolic murmur, rubs, systolic murmur Pulses: PRESENT: normal dorsalis pedis pul Vascular exam: PRESENT: normal capillary refill GI/Abdominal exam: PRESENT: normal bowel sounds, soft. ABSENT: distended, guarding, mass, organolmegaly, rebound, tenderness - none elicited on palpation Rectal exam: PRESENT: deferred Extremities exam: PRESENT: full ROM - Moves all extremities spontaneously. ABSENT: calf tenderness, clubbing, pedal edema Neurological exam: PRESENT: alert, awake, oriented to person, CN II-XII grossly intact, other - Disoriented, expressive aphasia, restless; encephalopathic. ABSENT: oriented to place, oriented to time, oriented to situation, motor sensory deficit Psychiatric exam: PRESENT: appropriate affect, normal mood. ABSENT: homicidal ideation, suicidal ideation Skin exam: PRESENT: dry, intact, warm. ABSENT: cyanosis, rash Results Laboratory Results: 07/18/20 05:20 07/18/20 05:20 07/18/20 05:20 CK-MB (CK-2) 2.31 Impressions: Head CT 07/14/20 13:44 IMPRESSION: MILD CHRONIC CHANGES OF ATROPHY AND MICROVASCULAR ISCHEMIA. NO ACU TE PROCESS. EVIDENCE OF ACUTE STROKE: NO. Chest X-Ray 07/14/20 15:16 IMPRESSION: Bilateral interstitial airspace disease most likely chronic. There are no old films available for comparison. Acute Abdomen Series 07/17/20 15:07 IMPRESSION: NO RADIOGRAPHIC EVIDENCE FOR ACUTE ABDOMINAL DISEASE. Assessment and Plan - Diagnosis (1) Acute metabolic encephalopathy Is this a current diagnosis for this admission?: Yes Plan: Unclear etiology. Patient was a social hold x3 days prior to admission for C. difficile infection. Per ED and mental health provider notes; patient presented to the ED with increased altered mental status and confusion that had been worsening over the previous several months to years. Head CT revealed chronic microvascular ischemic changes but no acute findings. Unfortunately, patient is not a candidate for MRI due to spinal hardware; unable to determine type and family members or not aware of what hospital this was placed as we cannot request records. Possibly related to acute infectious process and hospital psychosis in patient with underlying dementia and mental health disorders (medications for anxiety and depression on her home med list). We will follow up on CBC and BMP. In addition, will check TSH, B12, and cortisol. We will repeat head CT as it has been greater than 72 hours since the previous and so we may now see evidence of subtle ischemic changes if early in the acute phase upon presentation. Continue treatment for C. difficile infection. ABG to evaluate for subtle hypercapnia and/or acidosis that may be contributing to her mental status. Patient has also not been receiving her home opiate medications; no clear evidence for opiate withdrawal, however, this may also be contributing. Therefore, will resume low-dose scheduled morphine. Fall precautions. Supportive care. Discharge planning consulted; anticipate patient will require long-term placement in a memory care facility. (2) Clostridioides difficile infection Is this a current diagnosis for this admission?: Yes Plan: C. Diff Ag Positive C. Diff Negative This suggest prior recent infection; however, indeterminate active infection. Patient did have leukocytosis, fever, and abd discomfort on 07/17 and 07/18. Only 1 bowel movement documented today. Now afebrile and leukocytosis is improved. Currently on day #2 of oral Vancomycin (3) Diabetes Is this a current diagnosis for this admission?: Yes Plan: Holding oral medications while admitted. We will check A1c with a.m. lab work. Patient is placed on a consistent carb diet. Accu-Cheks before meals and at bedtime with Humalog for sliding scale coverage. Hypoglycemia protocol in place. Registered dietitian traffic monitor specialist consulted. (4) Opiate dependence, continuous Is this a current diagnosis for this admission?: Yes Plan: Home medication list reveals MS Contin 30 mg every 12 hours and [place] 1 tab 3 times daily as needed. We will resume MS Contin 15 mg every 12 hours. (5) Traumatic brain injury Qualifiers: Encounter type: sequela Is this a current diagnosis for this admission?: No Plan: As in #1. - Time Time Spent with patient: 35 or more minutes Medications reviewed and adjusted accordingly: Yes Anticipated Discharge Disposition: Senior Living Facility Anticipated Discharge Timeframe: within 48 hours
[2020-07-19] MEDS ORDERED: ATORVASTATIN CALCIUM 20 MG TABLET PO SCH (22:00)
[2020-07-19] MEDS ORDERED: (PENDING PHARMACY ID) (Carvedilol [Carvedilol] 25 MG Tablet) PO SCH (22:00)
[2020-07-19 23:03] LABS: ARTERIAL BLOOD H2CO3 1.37 mmol/L (1.05-1.35); ARTERIAL BLOOD O2 SATURATION 95.9 % (94-98); ARTERIAL BLOOD PCO2 45.4 mmHg (35-45); ARTERIAL BLOOD PH 7.44 (7.35-7.45); ARTERIAL BLOOD TOTAL CO2 31.4 mmol/L (21-25)
[2020-07-19 23:04] LABS: ARTERIAL BLOOD FIO2 ROOM AIR
[2020-07-20] MEDS: VANCOMYCIN HCL INJ 500 MG VIAL PO SCH ×4 (00:11→18:03)
[2020-07-20] MEDS: HYDRALAZINE HCL 10 MG TABLET PO SCH ×4 (00:12→18:03)
[2020-07-20] MEDS: CLONIDINE HCL 0.1 MG TABLET PO SCH (00:12)
[2020-07-20] MEDS: CARVEDILOL 12.5 MG TABLET PO SCH ×2 (00:12→10:05)
[2020-07-20] MEDS: MORPHINE SULFATE IR 15 MG TABLET PO SCH ×2 (00:13→10:05)
[2020-07-20] MEDS: GABAPENTIN 300 MG CAPSULE PO SCH ×3 (00:13→14:37)
[2020-07-20] MEDS: INSULIN LISPRO 100 UNIT/ML 3 ML VIAL SUBCUT SCH ×4 (00:30→17:54)
[2020-07-20 06:43] LABS: HEMATOCRIT 41.1 % (36.0-47.0); HEMOGLOBIN 13.8 g/dL (12.0-15.5); MEAN CORPUSCULAR HEMOGLOBIN 30.2 pg (27.0-33.4); MEAN CORPUSCULAR HGB CONC 33.5 g/dL (32.0-36.0); MEAN CORPUSCULAR VOLUME 90 fl (80-97); PLATELET COUNT 114 10^3/uL (150-450); RED BLOOD COUNT 4.56 10^6/uL (3.72-5.28); RED CELL DISTRIBUTION WIDTH 14.8 % (11.5-14.0); WHITE BLOOD COUNT 6.5 10^3/uL (4.0-10.5)
[2020-07-20 07:01] LABS: BLOOD UREA NITROGEN 14 mg/dL (7-20); CALCIUM 8.8 mg/dL (8.4-10.2); CARBON DIOXIDE 38 mmol/L (22-30); CHLORIDE 101 mmol/L (98-107); GLUCOSE 106 mg/dL (75-110)
[2020-07-20 07:57] LABS: ANION GAP 4 (5-19)
[2020-07-20 08:58] VITALS: BP 148/88
[2020-07-20] MEDS ORDERED: ENOXAPARIN SODIUM INJ 40 MG/0.4 ML DISP.SYRIN SUBCUT SCH (09:13)
[2020-07-20] MEDS ORDERED: CHOLECALCIFEROL (D3) 1,000 UNIT (25 MCG) TABLET PO SCH (10:00)
[2020-07-20] MEDS ORDERED: MULTIVITAMIN TABLET PO SCH (10:00)
[2020-07-20] MEDS ORDERED: CITALOPRAM HYDROBROMIDE 20 MG TABLET PO SCH (10:00)
[2020-07-20] MEDS ORDERED: POTASSIUM CHLORIDE 10 MEQ TABLET.ER PO SCH (10:00)
[2020-07-20] MEDS ORDERED: VENLAFAXINE HCL 75 MG CAP.SR.24H PO SCH (10:00)
[2020-07-20] MEDS ORDERED: (PENDING PHARMACY ID) (Multivitamin [Multiple Vitamins] 1 EACH Tablet) PO SCH (10:00)
[2020-07-20] MEDS ORDERED: FERROUS SULFATE 325 MG TABLET PO SCH (10:00)
[2020-07-20] MEDS ORDERED: ASPIRIN 81 MG TABLET, ENT COATED PO SCH (10:00)
[2020-07-20] MEDS: FAMOTIDINE 20 MG TABLET PO SCH ×2 (10:05→18:02)
[2020-07-20] MEDS: DIVALPROEX SODIUM 250 MG TABLET.DR PO SCH ×2 (10:05→18:02)
[2020-07-20] MEDS: POTASSI CL 20 MEQ/50 ML RIDER 20 MEQ/50 ML RTUPB IV SCH ×2 (10:06→12:15)
[2020-07-20] MEDS: BUSPIRONE HCL 10 MG TABLET PO SCH ×2 (10:06→18:02)
[2020-07-20] MEDS: NYSTATIN TOPICAL POWDER 15 GM TP SCH ×3 (10:43→18:03)
--- NOTE | 2020-07-20 11:57 | PDOC DISCHARGE SUMMARY ---
Impression - Admit/DC Date/PCP Admission Date/Primary Care Provider: 07/17/20 18:07 Discharge Date: 07/20/20 - Discharge Diagnosis (1) Acute metabolic encephalopathy Is this a current diagnosis for this admission?: Yes (2) Clostridioides difficile infection Is this a current diagnosis for this admission?: Yes (3) Diabetes Is this a current diagnosis for this admission?: Yes (4) Opiate dependence, continuous Is this a current diagnosis for this admission?: Yes (5) Traumatic brain injury Is this a current diagnosis for this admission?: No - Additional Information Resuscitation Status: Full Code Discharge Diet: Diabetic Discharge Activity: Activity As Tolerated, Balance Activity w/Rest, Slowly Increase Activity, Supervised Activity Referrals: CHARLEY MAY DO [NO LOCAL MD] - 07/28/20 2:00 pm Prescriptions: Hydralazine HCl [Apresoline 10 mg Tablet] 10 mg PO QID #120 tab Buspirone HCl 1 tab PO Q12 #60 tab Clonidine HCl [Catapres 0.1 mg Tablet] 0.1 mg PO QHS #30 tablet Divalproex Sodium [Depakote] 250 mg PO BID #60 tablet. Gabapentin [Neurontin 300 mg Capsule] 600 mg PO Q8 #90 capsule Vancomycin HCl [Vancocin Inj 500 mg Vial] 125 mg PO Q6 #28 vial Home Medications: Gabapentin 600 mg PO TID 07/14/20 Morphine Sulfate [Ms Contin] 30 mg PO Q12 07/14/20 Aspirin [Ecotrin 81 mg EC Tablet] 81 mg PO DAILY 07/19/20 Atorvastatin Calcium [Lipitor 20 mg Tablet] 20 mg PO QHS 07/19/20 Carvedilol 25 mg PO Q12 07/19/20 Cholecalciferol (Vitamin D3) [Vitamin D3 1000 Unit Tablet] 1,000 unit PO DAILY 07/19/20 Citalopram Hydrobromide [Celexa 20 mg Tablet] 20 mg PO DAILY 07/19/20 Famotidine [Acid-Pep] 20 mg PO BID 07/19/20 Ferrous Sulfate [Feosol 325 mg Tablet] 325 mg PO DAILY 07/19/20 Multivitamin [Multiple Vitamins] 1 each PO DAILY 07/19/20 Pioglitazone HCl [Actos 15 mg Tablet] 1 tab PO DAILY 07/19/20 Potassium Chloride [Klor-Con 10 Meq Tablet ER] 20 meq PO DAILY 07/19/20 Venlafaxine HCl ER [Effexor Xr 75 mg Cap.sr] 75 mg PO DAILY 07/19/20 Acetaminophen [Tylenol 325 mg Tablet] 650 mg PO Q4HP PRN tablet 07/20/20 Buspirone HCl 1 tab PO Q12 #60 tab 07/20/20 Clonidine HCl [Catapres 0.1 mg Tablet] 0.1 mg PO QHS #30 tablet 07/20/20 Divalproex Sodium [Depakote] 250 mg PO BID #60 tablet. 07/20/20 Gabapentin [Neurontin 300 mg Capsule] 600 mg PO Q8 #90 capsule 07/20/20 Hydralazine HCl [Apresoline 10 mg Tablet] 10 mg PO QID #120 tab 07/20/20 Vancomycin HCl [Vancocin Inj 500 mg Vial] 125 mg PO Q6 #28 vial 07/20/20 History of Present Illiness History of Present Illness: Per H&P by Dr. De Jesus: BRIA ENRIQUEZ is a 74 year old female with history of dementia, falls who was brought in to the ED on 07/14 for confusion. She had a fall with facial injury several months ago, and has not really recovered from it per spouse. She had been having hallucinations, aching, nausea. In the ED she is diagnosed with C. diff infection, and since her spouse is unable to take care of her, she has been an ED hold awaiting placement. Clinically she was noted to be deteriorating today, with neutrophilia, fever of 100F, hence after treatment with IV Vanco/cefepime and IVF, she is requested admission. Hospital Course Hospital Course: (1) Acute metabolic encephalopathy Resolved; likely multifactorial secondary to acute illness, dehydration, hospital admission, recent [id number] move in patient with underlying dementia, and potentially opiate misuse and/or withdrawal. Patient was a social hold x3 days prior to admission for C. difficile infection. Per ED and mental health provider notes; patient presented to the ED with increased altered mental status and confusion that had been worsening over the previous several months to years. Head CT revealed chronic microvascular ischemic changes but no acute findings. Unfortunately, patient is not a candidate for MRI due to spinal hardware; unable to determine type and family members or not aware of what hospital this was placed as we cannot request records. Thorough laboratory evaluation was benign. Repeat head CT is benign; no acute findings. Continue treatment for C. difficile infection. Mental health services were consulted; continue medications per their recommendation: BuSpar 5 mg twice daily, clonidine 1 mg nightly, Depakote 250 mg twice daily. Fall precautions. Supportive care. Discharged home with home health services. Recommend establishing with PCP as soon as possible. (2) Clostridioides difficile infection C. Diff Ag Positive C. Diff Negative This suggest prior recent infection; however, indeterminate active infection. Patient did have leukocytosis, fever, and abd discomfort on 07/17 and 07/18. Only 1 bowel movement documented today. Now afebrile and leukocytosis has resolved. Continue oral vancomycin x10 days. (3) Diabetes A1c 5.0%. Continue consistent carb diet and outpatient medication regiment. Outpatient follow-up with PCP; may consider liberalizing her glucose control to prevent hypoglycemia, altered mentation, and falls. (4) Opiate dependence, continuous Home medication list reveals MS Contin 30 mg every 12 hours and [place] 1 tab 3 times daily as needed. Patient received MS Contin 15 mg every 12 hours; whether coincidental or not, she regained her baseline mentation within 2 doses. Recommend establishing with outpatient PCP and pain management services. Physical Exam Vital Signs: Temp Pulse Resp BP Pulse Ox 97.8 F 90 18 148/88 H 96 07/20/20 08:57 07/20/20 08:57 07/20/20 08:57 07/20/20 08:57 07/20/20 08:57 Intake & Output 07/19/20 07/20/20 07/21/20 06:59 06:59 06:59 Intake Total 1360 340 Balance 1360 340 Weight 83 kg 78.6 kg General appearance: PRESENT: no acute distress, cooperative, obese, well- developed, well-nourished Head exam: PRESENT: atraumatic, normocephalic Eye exam: PRESENT: conjunctiva pink, EOMI, PERRLA. ABSENT: scleral icterus Mouth exam: PRESENT: moist, tongue midline Respiratory exam: PRESENT: clear to auscultation zara, symmetrical, unlabored. ABSENT: rales, rhonchi, wheezes Cardiovascular exam: PRESENT: RRR, +S1, +S2. ABSENT: diastolic murmur, rubs, systolic murmur Pulses: PRESENT: normal dorsalis pedis pul Vascular exam: PRESENT: normal capillary refill GI/Abdominal exam: PRESENT: normal bowel sounds, soft. ABSENT: distended, guarding, mass, organolmegaly, rebound, tenderness Rectal exam: PRESENT: deferred Extremities exam: PRESENT: full ROM. ABSENT: calf tenderness, clubbing, pedal edema Musculoskeletal exam: PRESENT: ambulatory - 10 feet with minimal assist and front wheel walker Neurological exam: PRESENT: alert, awake, oriented to person, oriented to place, oriented to time, oriented to situation, CN II-XII grossly intact, other - Oriented to self, Formerly [facility], year but President Iva and able to discuss politics accurately, and situation. Able to accurately answer what to do in the case of a stove fire or if she were to find a miss delivered envelope in her mailbox.. ABSENT: motor sensory deficit Psychiatric exam: PRESENT: appropriate affect - Gregarious, normal mood. ABSENT: homicidal ideation, suicidal ideation Skin exam: PRESENT: dry, intact, warm. ABSENT: cyanosis, rash Results Laboratory Results: WBC 6.5 10^3/uL (4.0-10.5) 07/20/20 06:34 RBC 4.56 10^6/uL (3.72-5.28) 07/20/20 06:34 Hgb 13.8 g/dL (12.0-15.5) 07/20/20 06:34 Hct 41.1 % (36.0-47.0) 07/20/20 06:34 MCV 90 fl (80-97) 07/20/20 06:34 MCH 30.2 pg (27.0-33.4) 07/20/20 06:34 MCHC 33.5 g/dL (32.0-36.0) 07/20/20 06:34 RDW 14.8 % (11.5-14.0) H 07/20/20 06:34 Plt Count 114 10^3/uL (150-450) L 07/20/20 06:34 Lymph % (Auto) 12.1 % (13-45) L 07/18/20 05:20 [place] % (Auto) 7.5 % (3-13) 07/18/20 05:20 Eos % (Auto) 0.4 % (0-6) 07/18/20 05:20 Baso % (Auto) 0.2 % (0-2) 07/18/20 05:20 Absolute Neuts (auto) 8.6 10^3/uL (1.7-8.2) H 07/18/20 05:20 Absolute Lymphs (auto) 1.3 10^3/uL (0.5-4.7) 07/18/20 05:20 Absolute Monos (auto) 0.8 10^3/uL (0.1-1.4) 07/18/20 05:20 Absolute Eos (auto) 0.0 10^3/uL (0.0-0.6) 07/18/20 05:20 Absolute Basos (auto) 0.0 10^3/uL (0.0-0.2) 07/18/20 05:20 Seg Neutrophils % 79.8 % (42-78) H 07/18/20 05:20 Platelet Estimate Cancelled 07/17/20 08:57 Carbonic Acid 1.37 mmol/L (1.05-1.35) H 07/19/20 22:17 HCO3/H2CO3 Ratio 21:1 07/19/20 22:17 ABG pH 7.44 (7.35-7.45) 07/19/20 22:17 ABG pCO2 45.4 mmHg (35-45) H 07/19/20 22:17 ABG pO2 78.0 mmHg (80-100) L 07/19/20 22:17 ABG HCO3 30.0 mmol/L (20-24) H 07/19/20 22:17 ABG Total CO2 31.4 mmol/L (21-25) H 07/19/20 22:17 ABG O2 Saturation 95.9 % (94-98) 07/19/20 22:17 ABG Base Excess 5.0 mmol/L 07/19/20 22:17 FiO2 ROOM AIR 07/19/20 22:17 Sodium 142.5 mmol/L (137-145) 07/20/20 06:34 Potassium 3.0 mmol/L (3.6-5.0) L* 07/20/20 06:34 Chloride 101 mmol/L (98-107) 07/20/20 06:34 Carbon Dioxide 38 mmol/L (22-30) H 07/20/20 06:34 Anion Gap 4 (5-19) L 07/20/20 06:34 BUN 14 mg/dL (7-20) 07/20/20 06:34 Creatinine 0.91 mg/dL (0.52-1.25) 07/20/20 06:34 Est GFR ( Amer) > 60 (>60) 07/20/20 06:34 Est GFR (MDRD) Non-Af > 60 (>60) 07/20/20 06:34 Glucose 106 mg/dL (75-110) 07/20/20 06:34 POC Glucose 113 mg/dL (70-110) H 07/20/20 11:32 Hemoglobin A1c % 5.0 % (4.7-6.0) 07/20/20 06:34 Lactic Acid 1.8 mmol/L (0.7-2.1) 07/17/20 15:50 Calcium 8.8 mg/dL (8.4-10.2) 07/20/20 06:34 Phosphorus 3.0 mg/dL (2.5-4.5) 07/18/20 05:20 Magnesium 1.9 mg/dL (1.6-2.3) 07/18/20 05:20 Total Bilirubin 1.4 mg/dL (0.2-1.3) H 07/18/20 05:20 Direct Bilirubin 0.3 mg/dL (0.0-0.4) 07/18/20 05:20 Neonat Total Bilirubin Not Reportable 07/18/20 05:20 Neonat Direct Bilirubin Not Reportable 07/18/20 05:20 Neonat Indirect Bili Not Reportable 07/18/20 05:20 AST 63 U/L (14-36) H 07/18/20 05:20 ALT 33 U/L (<35) 07/18/20 05:20 Alkaline Phosphatase 87 U/L (38-126) 07/18/20 05:20 Ammonia < 8.7 umol/L (9-33) L 07/20/20 06:34 CK-MB (CK-2) 2.31 ng/mL (<4.55) 07/18/20 05:20 Total Protein 6.1 g/dL (6.3-8.2) L 07/18/20 05:20 Albumin 3.1 g/dL (3.5-5.0) L 07/18/20 05:20 Vitamin B12 > 1000.0 pg/mL (239-931) H 07/20/20 06:34 TSH 4.00 uIU/mL (0.47-4.68) 07/20/20 06:34 Cortisol AM Sample 9.88 ug/dL (4.46-22.7) 07/20/20 06:34 Urine Color JAME 07/17/20 15:04 Urine Appearance SLIGHTLY-CLOUDY 07/17/20 15:04 Urine pH 6.0 (5.0-9.0) 07/17/20 15:04 Ur Specific [place] 1.025 07/17/20 15:04 Urine Protein >=500 mg/dL (NEGATIVE) H 07/17/20 15:04 Urine Glucose (UA) NEGATIVE mg/dL (NEGATIVE) 07/17/20 15:04 Urine Ketones TRACE mg/dL (NEGATIVE) H 07/17/20 15:04 Urine Blood SMALL (NEGATIVE) H 07/17/20 15:04 Urine Nitrite NEGATIVE (NEGATIVE) 07/17/20 15:04 Urine Bilirubin NEGATIVE (NEGATIVE) 07/17/20 15:04 Urine Urobilinogen NEGATIVE mg/dL (<2.0) 07/17/20 15:04 Ur Leukocyte Esterase NEGATIVE (NEGATIVE) 07/17/20 15:04 Urine WBC (Auto) 3 /HPF 07/17/20 15:04 Urine RBC (Auto) 3 /HPF 07/17/20 15:04 U Hyaline Cast (Auto) 1 /LPF 07/17/20 15:04 Squamous Epi Cells Auto <1 /HPF 07/17/20 15:04 Urine Mucus (Auto) RARE /LPF 07/17/20 15:04 Urine Ascorbic Acid NEGATIVE (NEGATIVE) 07/17/20 15:04 Stl C. Difficile GDH Ag POSITIVE (NEGATIVE) 07/18/20 10:58 Stl C.difficile Tox A&B NEGATIVE (NEGATIVE) 07/18/20 10:58 Stl C.difficile Tox PCR POSITIVE (NEGATIVE) 07/14/20 23:55 Urine Opiates Screen UNCONFIRMED POSITIVE 07/14/20 13:06 Urine Methadone Screen NEGATIVE 07/14/20 13:06 Ur Barbiturates Screen NEGATIVE 07/14/20 13:06 Ur Phencyclidine Scrn NEGATIVE 12/23/20 13:06 Ur Amphetamines Screen NEGATIVE 07/14/20 13:06 U Benzodiazepines Scrn NEGATIVE 07/14/20 13:06 Urine Cocaine Screen NEGATIVE 07/14/20 13:06 U Marijuana (THC) Screen NEGATIVE 07/14/20 13:06 Serum Alcohol < 10 mg/dL (NONE DETECTED) 07/14/20 12:45 COVID-19 Source See comment 07/14/20 16:25 COVID-19 (ALICJA) Not Detected (Not Detect) 07/14/20 16:25 Slides for Path Review Cancelled 07/17/20 08:57 07/18/20 05:20 CK-MB (CK-2) 2.31 Impressions: Head CT 07/14/20 13:44 IMPRESSION: MILD CHRONIC CHANGES OF ATROPHY AND MICROVASCULAR ISCHEMIA. NO ACUTE PROCESS. EVIDENCE OF ACUTE STROKE: NO. Chest X-Ray 07/14/20 15:16 IMPRESSION: Bilateral interstitial airspace disease most likely chronic. There are no old films available for comparison. Acute Abdomen Series 07/17/20 15:07 IMPRESSION: NO RADIOGRAPHIC EVIDENCE FOR ACUTE ABDOMINAL DISEASE. Plan Plan of Treatment: Patient is discharged home, in stable condition, into the care of family members with home health services. She is advised to take her medications as prescribed; complete full course of vancomycin. Drink plenty of water. Establish with a local PCP as soon as possible. Return to the emergency department, as needed, for concerning symptoms. Time Spent: Greater than 30 Minutes Stroke Is this a Stroke Patient?: No Acute Heart Failure Is this a Heart Failure Patient?: No
--- NOTE | 2020-07-20 12:08 | RADIOLOGY REPORT (SQ) ---
EXAM DESCRIPTION: CT HEAD WITHOUT IMAGES COMPLETED DATE/TIME: 07/20/2020 8:00 am REASON FOR STUDY: continued altered mental status; not MRI candidate COMPARISON: 07/14/2020 TECHNIQUE: Axial images acquired through the brain without intravenous contrast. Images reviewed wi th bone, brain and subdural windows. Additional sagittal and coronal reconstructions were generated. Images stored on PACS. All CT scanners at this facility use dose modulation, iterative reconstruction, and/or weight based d osing when appropriate to reduce radiation dose to as low as reasonably achievable (ALARA). [facility]: Dose Right [facility]: CareDose [facility]: Dose Right [facility]: Teradose 4D [facility]: Smart [employer]Well RADIATION DOSE: CT Rad equipment meets quality standard of care and radiation dose reduction techniq ues were employed. CTDIvol: 48.9 mGy. DLP: 910 mGy-cm. mGy. LIMITATIONS: None. FINDINGS: VENTRICLES: Prominent. CEREBRUM: No masses. No hemorrhage. No midline shift. Areas of low density in the white matter mos t likely due to chronic micro-vascular ischemic change. No evidence for acute infarction. CEREBELLUM: No masses. No hemorrhage. No alteration of density. No evidence for acute infarction. EXTRAAXIAL SPACES: Mild age-related involutional change. No fluid collections. No masses. ORBITS AND GLOBE: No intra- or extraconal masses. Normal contour of globe without masses. CALVARIUM: No fracture. PARANASAL SINUSES: No fluid or mucosal thickening. SOFT TISSUES: No mass or hematoma. OTHER: No other significant finding. IMPRESSION: STABLE MILD CHRONIC CHANGES OF ATROPHY AND MICROVASCULAR ISCHEMIA. NO ACUTE PROCESS. EVIDENCE OF ACUTE STROKE: NO. TECHNICAL DOCUMENTATION: JOB ID: [id number] Quality ID # [id number]: Final reports with documentation of one or more dose reduction techniques (e.g., Au tomated exposure control, adjustment of the mA and/or kV according to patient size, use of iterative reconstruction technique) 2010 [email or web address]- All Rights Reserved Reading location - IP/workstation name: [email or web address]
[2020-07-21] MEDS ORDERED: INFLUENZA QUAD (6MOS+) 2020-21 VAC 0.5 ML SYR IM ONE (08:00)
== END 2020-07-20 19:28 | disposition home health service (06) | DRG 371 ==
LOC: ER 12:22 → EH 07-17 18:07 → 4S 07-17 21:00
PROVIDERS: ADMIT Family Medicine; ATTEND Registered Nurse
DX: A04.72 Enterocolitis due to Clostridium difficile, not specified as recurrent (principal); G93.41 Metabolic encephalopathy; F11.20 Opioid dependence, uncomplicated; E86.0 Dehydration; F03.90 Unspecified dementia, unspecified severity, without behavioral disturbance, psychotic disturbance, mood disturbance, and anxiety; R62.7 Adult failure to thrive; Z20.828 Contact with and (suspected) exposure to other viral communicable diseases; G89.29 Other chronic pain; E11.9 Type 2 diabetes mellitus without complications; Z91.81 History of falling; Z87.820 Personal history of traumatic brain injury; Z79.84 Long term (current) use of oral hypoglycemic drugs
CPT/HCPCS: 36415; 36600; 70450; 71045; 74022; 80048; 80053; 80307; 81001; 82140; 82533; 82553; 82607; 82803; 82962; 83036; 83605; 83735; 84100; 84443; 85025; 85027; 87040; 87324; 87449; 87493; 87635; 93005; 93010; 94640; 96361; 96374; 99285; C9803; J0131; J0692; J1650; J2405; J3370; J3480; J3490; J7030; J7040; S0119

== ENCOUNTER 2020-07-21 09:50 | Emergency (ER) | payer MEDICARE ==
--- NOTE | 2020-07-21 10:07 | ER Document Report ---
ED General - General Stated Complaint: AMS Time Seen by Provider: 07/21/20 09:51 Notes: 74-year-old lady with dementia undiagnosed recently admitted for C. difficile dehydration and altered mental status presents with aggressive behavior delirium walking around the house not acting herself still having copious diarrhea and fecal incontinence. EMS reports she was quite combative and she had to be per Cassandra Wiggins, nurse practitioner from hospitalist service who knows the patient well she is at her baseline. Cassandra was asked in the ED and saw the patient. Per staff the patient lives at home, with a wealthy family who is yet been unable to place her in fact the reason she was admitted to the hospital for C. difficile is that she was a social hold in the ED awaiting placement showered to clear feces off before they brought her in. She was tachycardic and had elevated lactic and was fighting with them. She reports she feels fine. But developed diarrhea and was not able to be accepted by any facility due to her C. difficile and was subsequently discharged home. She has no complaints. - Related Data Allergies/Adverse Reactions: No Known Allergies Allergy (Verified 07/21/20 11:12) Past Medical History - General Information source: Emergency Med Personnel - Social History Smoking Status: Unknown if Ever Smoked Family History: Reviewed & Not Pertinent Endocrine Medical History: Reports: Hx Diabetes Mellitus Type 2 Psychiatric Medical History: Denies: Hx Depression Past Surgical History: Reports: Other - unable to obtain Review of Systems - Review of Systems Notes: REVIEW OF SYSTEMS Mental status PHYSICAL EXAMINATION General: No acute distress, well-nourished Head: Atraumatic, normocephalic ENT: Mouth normal, oropharynx moist, no exudates or tonsillar enlargement Eyes: Conjunctiva normal, pupils equal, lids normal Neck: No JVD, supple, no guarding CVS: Normal rate, regular rhythm, no murmurs Resp: No resp distress, equal and normal breath sounds bilaterally GI: Nondistended, soft, no tenderness to palpation, no rebound or guarding Ext: No deformities, no edema, normal range of motion in upper and lower ext Back: No CVA or midline TTP Skin: No rash, warm Lymphatic: No lymphadeopathy noted Neuro: Face symmetric speech fluent. Awake, alert. She has a 15 but seems cognitively impaired. Follows commands all 4 extremities. Physical Exam - Vital signs Vitals: Temp Resp BP Pulse Ox 98.1 F 15 165/73 H 85 L 07/21/20 09:57 07/21/20 09:57 07/21/20 09:57 07/21/20 09:57 Course - Re-evaluation Re-evalutation: 07/21/20 11:55 Patient presents with dementia which is clear on exam and what appears to be waxing and waning behavioral disturbance and delirium in the setting of recent C. difficile. Her vitals are normal her ED lab work-up is negative she has no lateral neuro deficits to suggest stroke and I suspect that her symptoms are due to the above dementia delirium combination. I's discussed the case with the hospitalist Cassandra who states that she has no medical reason for admission which I agree with. Discussed with Bashir from social work will evaluate the patient for placement. We will then talk to family. She was given Geodon because she did develop some excited delirium in the ED. 07/21/20 17:07 Discharge planning and dialysis social worker failed to figure out a disposition for the patient and since he does not meet criteria for medical admission she will be observed in the ED until he can find appropriate disposition. - Vital Signs Vital signs: Temp Pulse Resp BP Pulse Ox 98.1 F 21 H 107/85 100 07/21/20 09:57 07/21/20 15:06 07/21/20 15:06 07/21/20 15:06 - Laboratory Results Result Diagrams: 07/21/20 10:22 07/21/20 10:22 Laboratory Results Interpreted: 07/21/20 07/21/20 07/21/20 10:22 10:22 10:58 WBC 10.6 H RDW 15.0 H Lymph % (Auto) 10.5 L Carbon Dioxide 34 H Anion Gap 4 L BUN 23 H Est GFR ( Amer) 57 L Est GFR (MDRD) Non-Af 47 L Urine Protein 100 H Urine Ascorbic Acid 40 H Critical Laboratory Results Reviewed: No Critical Results - Radiology Results Critical Radiology Results Reviewed: No Critical Results Discharge - Discharge Clinical Impression: Delirium Condition: Good Disposition: OTHER
[2020-07-21 10:53] LABS: ABSOLUTE BASOPHILS # (AUTO) 0.1 10^3/uL (0.0-0.2); ABSOLUTE EOSINOPHILS # (AUTO) 0.3 10^3/uL (0.0-0.6); ABSOLUTE LYMPHOCYTES (AUTO) 1.1 10^3/uL (0.5-4.7); ABSOLUTE MONOCYTES (AUTO) 0.8 10^3/uL (0.1-1.4); ABSOLUTE NEUT (AUTO) 8.2 10^3/uL (1.7-8.2); BASOPHILS % (AUTO) 0.7 % (0-2); EOSINOPHILS % (AUTO) 3.2 % (0-6); HEMATOCRIT 39.4 % (36.0-47.0); HEMOGLOBIN 13.3 g/dL (12.0-15.5); LYMPHOCYTES % (AUTO) 10.5 % (13-45); MEAN CORPUSCULAR HEMOGLOBIN 30.6 pg (27.0-33.4); MEAN CORPUSCULAR HGB CONC 33.8 g/dL (32.0-36.0); MEAN CORPUSCULAR VOLUME 90 fl (80-97); MONOCYTES % (AUTO) 7.8 % (3-13); PLATELET COUNT 162 10^3/uL (150-450); RED BLOOD COUNT 4.37 10^6/uL (3.72-5.28); SEGMENTED NEUTROPHILS % (AUTO) 77.8 % (42-78); TOTAL CELLS COUNTED % (AUTO) 100 %; WHITE BLOOD COUNT 10.6 10^3/uL (4.0-10.5)
[2020-07-21] MEDS ORDERED: ZIPRASIDONE MESYLATE INJ/PF 20 MG SDV IM ONE (11:08)
[2020-07-21 11:29] LABS: APPEARANCE,URINE CLEAR; BILIRUBIN,URINE NEGATIVE (NEGATIVE); COLOR,URINE YELLOW; GLUCOSE, URINE NEGATIVE (NEGATIVE); KETONES,URINE NEGATIVE (NEGATIVE); LEUKOCYTE ESTERASE,URINE NEGATIVE (NEGATIVE); NITRITE,URINE NEGATIVE (NEGATIVE); PROTEIN,URINE 100 mg/dL (NEGATIVE); UROBILINOGEN,URINE NEGATIVE mg/dL (<2.0)
[2020-07-21 11:36] LABS: ANION GAP 4 (5-19); BLOOD UREA NITROGEN 23 mg/dL (7-20); CALCIUM 9.3 mg/dL (8.4-10.2); CARBON DIOXIDE 34 mmol/L (22-30); CHLORIDE 99 mmol/L (98-107); GLUCOSE 90 mg/dL (75-110); POTASSIUM 4.1 mmol/L (3.6-5.0)
[2020-07-22] MEDS ORDERED: HYDROCODONE/ACETAMINOPHEN 5-325 MG TABLET PO ONE ×2 (04:38→15:35)
--- NOTE | 2020-07-22 19:46 | ER Document Report ---
Doctor's Note Notes: 07/22/20 19:43 Patient seen and examined. This is a 74-year-old female with a recent history of C. difficile and hospitalization, who had failure to thrive and generalized weakness at home. The family did not feel they were able to take care of her appropriately, so case management and therapy have been consulted for placement. The patient states that she is not feeling particularly well, has not taken any of her oxycodone. In fact any of her medications were reconciled yet. Otherwise she states she believes she can go home with the sister, but states that that cannot happen yet. Otherwise she has no other acute complaints. It is reported to me that she had a few episodes of diarrhea today, but the patient states they were minimal. On exam patient is hypertensive. She is awake and alert, cooperative. Heart is regular rate and rhythm, lungs are clear to auscultation bilaterally. Abdomen is soft, nontender, normoactive bowel sounds. In short, this patient has known C. difficile, generalized weakness, and disposition is being worked on by case management. I will repeat her metabolic panel tomorrow as she did not receive any vancomycin until it was ordered by this physician this evening. She did have some mild elevation of her BUN, this will be evaluated again in the morning, although it is reported to me that she is eating and drinking. We will restart all of her regular medications and the medications that were recommended by discharge summary per the medicine team. The patient is amenable to this plan.
[2020-07-22] MEDS: CARVEDILOL 12.5 MG TABLET PO SCH (21:53)
[2020-07-22] MEDS: ATORVASTATIN CALCIUM 20 MG TABLET PO SCH (21:53)
[2020-07-22] MEDS: HYDRALAZINE HCL 10 MG TABLET PO SCH (21:53)
[2020-07-22] MEDS: BUSPIRONE HCL 10 MG TABLET PO SCH (21:54)
[2020-07-22] MEDS: GABAPENTIN 300 MG CAPSULE PO SCH (21:54)
[2020-07-22] MEDS: MORPHINE SULFATE SR 30 MG TABLET PO SCH (21:54)
[2020-07-22] MEDS: CLONIDINE HCL 0.1 MG TABLET PO SCH (21:54)
[2020-07-23] MEDS: VANCOMYCIN HCL INJ 500 MG VIAL PO SCH ×4 (00:26→18:12)
[2020-07-23] MEDS: GABAPENTIN 300 MG CAPSULE PO SCH ×3 (06:08→23:09)
[2020-07-23] MEDS: MORPHINE SULFATE SR 30 MG TABLET PO SCH ×2 (09:17→23:11)
[2020-07-23] MEDS: HYDRALAZINE HCL 10 MG TABLET PO SCH ×4 (09:22→23:10)
[2020-07-23] MEDS: BUSPIRONE HCL 10 MG TABLET PO SCH ×2 (09:22→23:06)
[2020-07-23] MEDS: CARVEDILOL 12.5 MG TABLET PO SCH ×2 (09:22→23:08)
[2020-07-23] MEDS: MULTIVITAMIN TABLET PO SCH (09:22)
[2020-07-23] MEDS: POTASSIUM CHLORIDE 10 MEQ TABLET.ER PO SCH (09:22)
[2020-07-23] MEDS: FAMOTIDINE 20 MG TABLET PO SCH ×2 (09:23→18:11)
[2020-07-23] MEDS: VENLAFAXINE HCL 75 MG CAP.SR.24H PO SCH (09:23)
[2020-07-23] MEDS: CITALOPRAM HYDROBROMIDE 20 MG TABLET PO SCH (09:23)
[2020-07-23] MEDS: ASPIRIN 81 MG TABLET, ENT COATED PO SCH (09:23)
[2020-07-23] MEDS: CHOLECALCIFEROL (D3) 1,000 UNIT (25 MCG) TABLET PO SCH (09:23)
[2020-07-23] MEDS: FERROUS SULFATE 325 MG TABLET PO SCH (09:23)
[2020-07-23] MEDS: DIVALPROEX SODIUM 250 MG TABLET.DR PO SCH ×2 (09:23→18:11)
[2020-07-23] MEDS: PIOGLITAZONE HCL 15 MG TABLET PO SCH (09:37)
[2020-07-23 10:14] LABS: BLOOD UREA NITROGEN 13 mg/dL (7-20); CALCIUM 9.2 mg/dL (8.4-10.2); GLUCOSE 103 mg/dL (75-110); POTASSIUM 4.1 mmol/L (3.6-5.0)
[2020-07-23 10:20] LABS: CARBON DIOXIDE 34 mmol/L (22-30); CHLORIDE 102 mmol/L (98-107)
[2020-07-23 10:21] LABS: ANION GAP 2 (5-19)
--- NOTE | 2020-07-23 15:22 | ER Document Report ---
Doctor's Note Notes: 07/23/20 15:18 Patient seen and examined. Notified by nursing that the patient's blood pressure was in the 90s. When hospitalized recently, they have started her on hydralazine at discharge. This will be held. The patient herself has no complaints. She woke up to have some lunch, has been resting comfortably. Her pain has been controlled by the morphine. I was notified by nursing as well that she has a rash in her diaper area, otherwise labs reviewed and her metabolic panel this morning looks excellent. On exam, patient is pleasant, cooperative, and actually quite happy with her rest last night. Head is normocephalic and atraumatic. Heart is regular rate and rhythm, lungs are clear to auscultation bilaterally. Abdomen soft, nontender. Examination of the genital and perianal region yields erythema with some mild edema, satellite lesions, all consistent with likely candidal infection. In short, this is a 74-year-old female with known C. difficile colitis, on continued vancomycin therapy, who is here for weakness, failure to thrive. Awaiting case management input in regards to ultimate disposition. Otherwise, we will start the patient on nystatin. I do not see a need to recheck labs tomorrow as she has been stable. Again blood pressure medication being held based on current vitals. We will continue to monitor.
[2020-07-23] MEDS: NYSTATIN CREAM 15 GM TP SCH (18:11)
[2020-07-23] MEDS: CLONIDINE HCL 0.1 MG TABLET PO SCH (23:06)
[2020-07-23] MEDS: ATORVASTATIN CALCIUM 20 MG TABLET PO SCH (23:11)
[2020-07-24] MEDS: GABAPENTIN 300 MG CAPSULE PO SCH ×3 (06:51→23:22)
[2020-07-24] MEDS: VANCOMYCIN HCL INJ 500 MG VIAL PO SCH ×5 (06:51→23:18)
[2020-07-24] MEDS: HYDRALAZINE HCL 10 MG TABLET PO SCH ×4 (09:25→23:24)
[2020-07-24] MEDS: CARVEDILOL 12.5 MG TABLET PO SCH ×2 (09:35→23:22)
[2020-07-24] MEDS: BUSPIRONE HCL 10 MG TABLET PO SCH (09:43)
[2020-07-24] MEDS: PIOGLITAZONE HCL 15 MG TABLET PO SCH (09:43)
[2020-07-24] MEDS: VENLAFAXINE HCL 75 MG CAP.SR.24H PO SCH (09:43)
[2020-07-24] MEDS: POTASSIUM CHLORIDE 10 MEQ TABLET.ER PO SCH (09:43)
[2020-07-24] MEDS: FAMOTIDINE 20 MG TABLET PO SCH ×2 (09:43→17:53)
[2020-07-24] MEDS: DIVALPROEX SODIUM 250 MG TABLET.DR PO SCH ×2 (09:43→17:54)
[2020-07-24] MEDS: CHOLECALCIFEROL (D3) 1,000 UNIT (25 MCG) TABLET PO SCH (09:43)
[2020-07-24] MEDS: ASPIRIN 81 MG TABLET, ENT COATED PO SCH (09:44)
[2020-07-24] MEDS: NYSTATIN CREAM 15 GM TP SCH ×2 (09:44→17:54)
[2020-07-24] MEDS: MORPHINE SULFATE SR 30 MG TABLET PO SCH (09:44)
[2020-07-24] MEDS: FERROUS SULFATE 325 MG TABLET PO SCH (09:44)
[2020-07-24] MEDS: MULTIVITAMIN TABLET PO SCH (09:44)
[2020-07-24] MEDS: CITALOPRAM HYDROBROMIDE 20 MG TABLET PO SCH (09:44)
[2020-07-24] MEDS: ATORVASTATIN CALCIUM 20 MG TABLET PO SCH (23:22)
[2020-07-24] MEDS: CLONIDINE HCL 0.1 MG TABLET PO SCH (23:23)
[2020-07-24] MEDS ORDERED: BUSPIRONE HCL 10 MG TABLET ONE (23:30)
[2020-07-24] MEDS ORDERED: MORPHINE SULFATE SR 30 MG TABLET PO ONE (23:30)
--- NOTE | 2020-07-24 23:42 | ER Document Report ---
Doctor's Note Notes: 07/24/20 23:40 Provider note: Patient resting comfortably not showing any signs of distress patient denies any chest pain shortness of breath. Discussed patient's case with nursing staff and patient is eating today and has not shown any clinical signs of distress. Patient's blood pressure has remained marginal therefore patient is not receiving any of the blood pressure medicine that she had been prescribed and at this time I agree that patient blood pressure medicine should be held. Vital signs are stable lungs clear normal S1-S2 abdomen soft and patient is is alert and voices no complaints. Plan is to continue to hold patient in the emergency department waiting for fci placement.
[2020-07-25] MEDS: MORPHINE SULFATE SR 30 MG TABLET PO SCH ×3 (01:37→23:28)
[2020-07-25] MEDS: BUSPIRONE HCL 10 MG TABLET PO SCH ×3 (01:37→23:29)
[2020-07-25] MEDS: VANCOMYCIN HCL INJ 500 MG VIAL PO SCH ×4 (06:34→23:40)
[2020-07-25] MEDS: GABAPENTIN 300 MG CAPSULE PO SCH ×3 (06:36→23:30)
[2020-07-25] MEDS: FAMOTIDINE 20 MG TABLET PO SCH ×2 (10:21→18:11)
[2020-07-25] MEDS: ASPIRIN 81 MG TABLET, ENT COATED PO SCH (10:21)
[2020-07-25] MEDS: CHOLECALCIFEROL (D3) 1,000 UNIT (25 MCG) TABLET PO SCH (10:21)
[2020-07-25] MEDS: DIVALPROEX SODIUM 250 MG TABLET.DR PO SCH ×2 (10:21→18:11)
[2020-07-25] MEDS: POTASSIUM CHLORIDE 10 MEQ TABLET.ER PO SCH (10:22)
[2020-07-25] MEDS: CITALOPRAM HYDROBROMIDE 20 MG TABLET PO SCH (10:22)
[2020-07-25] MEDS: HYDRALAZINE HCL 10 MG TABLET PO SCH ×4 (10:22→23:28)
[2020-07-25] MEDS: CARVEDILOL 12.5 MG TABLET PO SCH ×2 (10:22→23:29)
[2020-07-25] MEDS: VENLAFAXINE HCL 75 MG CAP.SR.24H PO SCH (10:22)
[2020-07-25] MEDS: MULTIVITAMIN TABLET PO SCH (10:23)
[2020-07-25] MEDS: PIOGLITAZONE HCL 15 MG TABLET PO SCH (10:23)
[2020-07-25] MEDS: FERROUS SULFATE 325 MG TABLET PO SCH (10:24)
[2020-07-25] MEDS: NYSTATIN CREAM 15 GM TP SCH ×2 (10:25→18:12)
--- NOTE | 2020-07-25 11:44 | ER Document Report ---
Doctor's Note Notes: 07/25/20 11:40 ED providers Daily note: Patient resting comfortably easily arouse awakes and has conversation and no complaints of anything at this time. Patient's breakfast is at her table side however patient has not eaten breakfast but drank juice. I have discussed with nurse. Asked to assist patient in sitting up and encouraging her to eat her breakfast. Also patient did have 1 loose stool overnight. We are going to test her stool if she has another loose stool diarrhea today or when it occurs to determine if patient has cleared her C. difficile diarrhea. Vital signs stable lungs clear normal S1-S2 abdomen soft nontender. Assessment pending placement either to a jail or finding enough nursing support that patient may return to her residence. Care management team is working on nursing assistance for patient to return home if possible. Continue to hold blood pressure medicine until further instructions. Request for physical therapy consult inasmuch as patient most likely is deconditioned at this time and has been bedridden in the hospital for a month. 07/25/20 11:42
[2020-07-25 18:42] LABS: C DIFFICILE GDH POSITIVE (NEGATIVE)
[2020-07-25] MEDS: CLONIDINE HCL 0.1 MG TABLET PO SCH (23:29)
[2020-07-25] MEDS: ATORVASTATIN CALCIUM 20 MG TABLET PO SCH (23:30)
[2020-07-26] MEDS: VANCOMYCIN HCL INJ 500 MG VIAL PO SCH ×4 (08:31→23:38)
[2020-07-26] MEDS: GABAPENTIN 300 MG CAPSULE PO SCH ×3 (08:31→21:15)
[2020-07-26] MEDS: POTASSIUM CHLORIDE 10 MEQ TABLET.ER PO SCH (09:24)
[2020-07-26] MEDS: FAMOTIDINE 20 MG TABLET PO SCH ×2 (09:24→17:17)
[2020-07-26] MEDS: CITALOPRAM HYDROBROMIDE 20 MG TABLET PO SCH (09:24)
[2020-07-26] MEDS: ASPIRIN 81 MG TABLET, ENT COATED PO SCH (09:24)
[2020-07-26] MEDS: VENLAFAXINE HCL 75 MG CAP.SR.24H PO SCH (09:25)
[2020-07-26] MEDS: CHOLECALCIFEROL (D3) 1,000 UNIT (25 MCG) TABLET PO SCH (09:25)
[2020-07-26] MEDS: DIVALPROEX SODIUM 250 MG TABLET.DR PO SCH ×2 (09:25→17:17)
[2020-07-26] MEDS: NYSTATIN CREAM 15 GM TP SCH ×2 (09:26→17:18)
[2020-07-26] MEDS: HYDRALAZINE HCL 10 MG TABLET PO SCH ×4 (09:41→21:16)
--- NOTE | 2020-07-26 09:44 | ER Document Report ---
Doctor's Note Notes: 07/26/20 09:41 ED providers note; patient resting comfortable alert awake completed half of her breakfast this morning. Patient voices no complaints other than she would like to go home. Lungs are clear normal S1-S2 blood pressure systolic this morning is 146 patient is been monitored on this blood pressure because 1 as I understand it we have been holding her blood pressure medication because of a near low normal blood pressure without medications. The systolic of 146 is the highest I have seen in several days however I think we still should monitor patient's blood pressures need for BP medication. Understand has not been any recent diarrhea in the past 24 hours. And I have called Bashir Becerril, disease case manager rn for the ED to this bring us up-to-date on the whole process of where we are with her placement
[2020-07-26] MEDS: CARVEDILOL 12.5 MG TABLET PO SCH ×2 (10:08→21:15)
[2020-07-26] MEDS: MORPHINE SULFATE SR 30 MG TABLET PO SCH ×2 (10:14→21:14)
[2020-07-26] MEDS: FERROUS SULFATE 325 MG TABLET PO SCH (10:15)
[2020-07-26] MEDS: MULTIVITAMIN TABLET PO SCH (10:15)
[2020-07-26] MEDS: BUSPIRONE HCL 10 MG TABLET PO SCH ×2 (10:15→21:15)
[2020-07-26] MEDS: PIOGLITAZONE HCL 15 MG TABLET PO SCH (11:51)
[2020-07-26] MEDS: CLONIDINE HCL 0.1 MG TABLET PO SCH (21:15)
[2020-07-26] MEDS: ATORVASTATIN CALCIUM 20 MG TABLET PO SCH (21:16)
[2020-07-27] MEDS: VANCOMYCIN HCL INJ 500 MG VIAL PO SCH ×3 (06:21→17:39)
[2020-07-27] MEDS: GABAPENTIN 300 MG CAPSULE PO SCH ×3 (06:21→21:18)
[2020-07-27] MEDS: BUSPIRONE HCL 10 MG TABLET PO SCH ×2 (09:23→21:17)
[2020-07-27] MEDS: MORPHINE SULFATE SR 30 MG TABLET PO SCH ×2 (09:23→21:17)
[2020-07-27] MEDS: HYDRALAZINE HCL 10 MG TABLET PO SCH ×4 (09:23→21:17)
[2020-07-27] MEDS: CHOLECALCIFEROL (D3) 1,000 UNIT (25 MCG) TABLET PO SCH (09:24)
[2020-07-27] MEDS: DIVALPROEX SODIUM 250 MG TABLET.DR PO SCH ×2 (09:24→17:39)
[2020-07-27] MEDS: MULTIVITAMIN TABLET PO SCH (09:24)
[2020-07-27] MEDS: FERROUS SULFATE 325 MG TABLET PO SCH (09:24)
[2020-07-27] MEDS: FAMOTIDINE 20 MG TABLET PO SCH ×2 (09:24→17:39)
[2020-07-27] MEDS: ASPIRIN 81 MG TABLET, ENT COATED PO SCH (09:24)
[2020-07-27] MEDS: POTASSIUM CHLORIDE 10 MEQ TABLET.ER PO SCH (09:24)
[2020-07-27] MEDS: CITALOPRAM HYDROBROMIDE 20 MG TABLET PO SCH (09:24)
[2020-07-27] MEDS: CARVEDILOL 12.5 MG TABLET PO SCH ×2 (09:24→21:16)
[2020-07-27] MEDS: NYSTATIN CREAM 15 GM TP SCH ×2 (09:25→17:41)
[2020-07-27] MEDS: VENLAFAXINE HCL 75 MG CAP.SR.24H PO SCH (09:25)
--- NOTE | 2020-07-27 09:56 | ER Document Report ---
Doctor's Note Notes: 07/27/20 09:55 Dr. Rendon called be today and said that the mental health team had recommended tapering the patient off her Effexor since she was already on citalopram. She has received today's dose of Effexor so I entered an order to decrease her dose to Effexor XR 37.5 mg daily starting on July 28, 2020. At the end of 7 days that order will stop. (RUSTY SHINE) 08/01/20 16:46 I have seen and assessed the patient again today on rounds. Patient continues to have diarrhea. Given the recent C. difficile toxin infection with recurrence of diarrhea causing excoriation of her perineum, buttocks, and back, I will start the patient on vancomycin once again and send the PCR. (SOPHIE GOLDMAN)
[2020-07-27] MEDS ORDERED: VENLAFAXINE HCL 37.5 MG CAP.SR.24H PO SCH (10:00)
[2020-07-27] MEDS: PIOGLITAZONE HCL 15 MG TABLET PO SCH (12:08)
[2020-07-27 16:57] LABS: ABSOLUTE BASOPHILS # (AUTO) 0.1 10^3/uL (0.0-0.2); ABSOLUTE EOSINOPHILS # (AUTO) 0.2 10^3/uL (0.0-0.6); ABSOLUTE LYMPHOCYTES (AUTO) 1.2 10^3/uL (0.5-4.7); ABSOLUTE MONOCYTES (AUTO) 0.7 10^3/uL (0.1-1.4); ABSOLUTE NEUT (AUTO) 3.7 10^3/uL (1.7-8.2); BASOPHILS % (AUTO) 1.2 % (0-2); EOSINOPHILS % (AUTO) 2.7 % (0-6); HEMATOCRIT 35.8 % (36.0-47.0); HEMOGLOBIN 12.1 g/dL (12.0-15.5); LYMPHOCYTES % (AUTO) 20.6 % (13-45); MEAN CORPUSCULAR HEMOGLOBIN 30.2 pg (27.0-33.4); MEAN CORPUSCULAR HGB CONC 33.8 g/dL (32.0-36.0); MEAN CORPUSCULAR VOLUME 90 fl (80-97); MONOCYTES % (AUTO) 12.1 % (3-13); PLATELET COUNT 238 10^3/uL (150-450); RED BLOOD COUNT 4.01 10^6/uL (3.72-5.28); RED CELL DISTRIBUTION WIDTH 14.5 % (11.5-14.0); SEGMENTED NEUTROPHILS % (AUTO) 63.4 % (42-78); TOTAL CELLS COUNTED % (AUTO) 100 %; WHITE BLOOD COUNT 5.9 10^3/uL (4.0-10.5)
[2020-07-27 17:16] LABS: BLOOD UREA NITROGEN 17 mg/dL (7-20); CALCIUM 9.1 mg/dL (8.4-10.2); CARBON DIOXIDE 30 mmol/L (22-30); CHLORIDE 101 mmol/L (98-107); GLUCOSE 87 mg/dL (75-110); POTASSIUM 5.5 mmol/L (3.6-5.0)
[2020-07-27 17:17] LABS: ANION GAP 4 (5-19)
[2020-07-27] MEDS ORDERED: NORMAL SALINE 500 ML IV ONE (18:03)
--- NOTE | 2020-07-27 19:50 | ER Document Report ---
Doctor's Note Notes: 07/27/20 19:48 Patient was seen this afternoon. She is resting comfortably. She states she has no complaints. Social work is currently working on rehab which is what the son requested before she goes home. On exam, patient is awake and alert. She is in no acute distress. Her abdomen is soft. She is moving all extremities. I did order blood work as she has not had this in several days. Patient does have a mildly elevated potassium. I ordered her a small fluid bolus and a recheck of the potassium which I will have the oncoming physician follow-up on.
[2020-07-27] MEDS: CLONIDINE HCL 0.1 MG TABLET PO SCH (21:18)
[2020-07-27] MEDS: ATORVASTATIN CALCIUM 20 MG TABLET PO SCH (21:18)
[2020-07-28] MEDS: VANCOMYCIN HCL INJ 500 MG VIAL PO SCH ×4 (00:52→18:48)
[2020-07-28] MEDS: GABAPENTIN 300 MG CAPSULE PO SCH ×2 (06:18→14:15)
[2020-07-28] MEDS: BUSPIRONE HCL 10 MG TABLET PO SCH (10:05)
[2020-07-28] MEDS: CARVEDILOL 12.5 MG TABLET PO SCH (10:05)
[2020-07-28] MEDS: ASPIRIN 81 MG TABLET, ENT COATED PO SCH (10:05)
[2020-07-28] MEDS: FAMOTIDINE 20 MG TABLET PO SCH ×2 (10:05→18:47)
[2020-07-28] MEDS: CITALOPRAM HYDROBROMIDE 20 MG TABLET PO SCH (10:06)
[2020-07-28] MEDS: MORPHINE SULFATE SR 30 MG TABLET PO SCH (10:06)
[2020-07-28] MEDS: FERROUS SULFATE 325 MG TABLET PO SCH (10:06)
[2020-07-28] MEDS: MULTIVITAMIN TABLET PO SCH (10:06)
[2020-07-28] MEDS: DIVALPROEX SODIUM 250 MG TABLET.DR PO SCH ×2 (10:06→18:49)
[2020-07-28] MEDS: CHOLECALCIFEROL (D3) 1,000 UNIT (25 MCG) TABLET PO SCH (10:06)
[2020-07-28] MEDS: HYDRALAZINE HCL 10 MG TABLET PO SCH ×3 (10:06→18:49)
[2020-07-28] MEDS: NYSTATIN CREAM 15 GM TP SCH ×2 (10:07→18:47)
[2020-07-28] MEDS: PIOGLITAZONE HCL 15 MG TABLET PO SCH (10:23)
[2020-07-28] MEDS: POTASSIUM CHLORIDE 10 MEQ TABLET.ER PO SCH (10:23)
--- NOTE | 2020-07-28 15:13 | ER Document Report ---
Entered by SARMAD MENA SCRIBE 07/28/20 1441 Acting as scribe for:IDANIA APONTE IV, MD Doctor's Note Notes: 07/28/20 14:40 This MD went in to evaluate the patient. Awaiting placement with case management at this time. On exam, patient is awake and alert, in no acute distress. She is resting comfortably watching television. Heart sounds are normal without any murmurs, rubs, or gallops. Lungs clear to auscultation bilaterally. Abdomen soft and nontender. Lower extremities are without any edema. I personally performed the services described in the documentation, reviewed and edited the documentation which was dictated to the scribe in my presence, and it accurately records my words and actions.
[2020-07-29] MEDS: VANCOMYCIN HCL INJ 500 MG VIAL PO SCH ×4 (00:01→18:32)
[2020-07-29] MEDS: GABAPENTIN 300 MG CAPSULE PO SCH ×4 (00:03→22:02)
[2020-07-29] MEDS: ATORVASTATIN CALCIUM 20 MG TABLET PO SCH ×2 (00:04→22:03)
[2020-07-29] MEDS: CARVEDILOL 12.5 MG TABLET PO SCH ×3 (00:04→22:03)
[2020-07-29] MEDS: HYDRALAZINE HCL 10 MG TABLET PO SCH ×5 (00:05→22:05)
[2020-07-29] MEDS: BUSPIRONE HCL 10 MG TABLET PO SCH ×3 (00:05→22:05)
[2020-07-29] MEDS: MORPHINE SULFATE SR 30 MG TABLET PO SCH ×2 (00:05→12:05)
[2020-07-29] MEDS: CLONIDINE HCL 0.1 MG TABLET PO SCH ×2 (00:05→22:04)
[2020-07-29] MEDS: ASPIRIN 81 MG TABLET, ENT COATED PO SCH (12:05)
[2020-07-29] MEDS: FERROUS SULFATE 325 MG TABLET PO SCH (12:05)
[2020-07-29] MEDS: DIVALPROEX SODIUM 250 MG TABLET.DR PO SCH ×2 (12:06→18:33)
[2020-07-29] MEDS: CHOLECALCIFEROL (D3) 1,000 UNIT (25 MCG) TABLET PO SCH (12:06)
[2020-07-29] MEDS: CITALOPRAM HYDROBROMIDE 20 MG TABLET PO SCH (12:06)
[2020-07-29] MEDS: MULTIVITAMIN TABLET PO SCH (12:06)
[2020-07-29] MEDS: NYSTATIN CREAM 15 GM TP SCH ×2 (12:07→18:33)
[2020-07-29] MEDS: FAMOTIDINE 20 MG TABLET PO SCH ×2 (12:07→18:33)
[2020-07-29] MEDS: POTASSIUM CHLORIDE 10 MEQ TABLET.ER PO SCH (12:08)
[2020-07-29] MEDS: PIOGLITAZONE HCL 15 MG TABLET PO SCH (13:14)
--- NOTE | 2020-07-29 19:36 | ER Document Report ---
Doctor's Note Notes: 07/29/20 19:34 Patient is being referred to a rehabilitation center by case management. Final disposition remains pending. Currently awake and alert no acute distress. Already at rhythm regular without murmur.. Lungs clear. No peripheral edema.
[2020-07-30] MEDS: VANCOMYCIN HCL INJ 500 MG VIAL PO SCH (00:12)
[2020-07-30] MEDS: GABAPENTIN 300 MG CAPSULE PO SCH ×3 (05:54→21:23)
[2020-07-30] MEDS: PIOGLITAZONE HCL 15 MG TABLET PO SCH (10:01)
[2020-07-30] MEDS: ASPIRIN 81 MG TABLET, ENT COATED PO SCH (10:02)
[2020-07-30] MEDS: BUSPIRONE HCL 10 MG TABLET PO SCH ×2 (10:02→21:23)
[2020-07-30] MEDS: NYSTATIN CREAM 15 GM TP SCH (10:02)
[2020-07-30] MEDS: CARVEDILOL 12.5 MG TABLET PO SCH ×2 (10:02→21:24)
[2020-07-30] MEDS: CHOLECALCIFEROL (D3) 1,000 UNIT (25 MCG) TABLET PO SCH (10:02)
[2020-07-30] MEDS: HYDRALAZINE HCL 10 MG TABLET PO SCH ×4 (10:02→21:23)
[2020-07-30] MEDS: FAMOTIDINE 20 MG TABLET PO SCH ×2 (10:02→18:17)
[2020-07-30] MEDS: DIVALPROEX SODIUM 250 MG TABLET.DR PO SCH ×2 (10:02→18:17)
[2020-07-30] MEDS: FERROUS SULFATE 325 MG TABLET PO SCH (10:02)
[2020-07-30] MEDS: MULTIVITAMIN TABLET PO SCH (10:02)
[2020-07-30] MEDS: CITALOPRAM HYDROBROMIDE 20 MG TABLET PO SCH (10:02)
[2020-07-30] MEDS: POTASSIUM CHLORIDE 10 MEQ TABLET.ER PO SCH (10:03)
[2020-07-30] MEDS: ATORVASTATIN CALCIUM 20 MG TABLET PO SCH (21:23)
[2020-07-30] MEDS: CLONIDINE HCL 0.1 MG TABLET PO SCH (21:24)
[2020-07-31] MEDS: GABAPENTIN 300 MG CAPSULE PO SCH ×3 (08:04→22:19)
[2020-07-31] MEDS: CITALOPRAM HYDROBROMIDE 20 MG TABLET PO SCH (09:45)
[2020-07-31] MEDS: POTASSIUM CHLORIDE 10 MEQ TABLET.ER PO SCH (09:45)
[2020-07-31] MEDS: CARVEDILOL 12.5 MG TABLET PO SCH ×2 (09:45→22:19)
[2020-07-31] MEDS: MULTIVITAMIN TABLET PO SCH (09:46)
[2020-07-31] MEDS: BUSPIRONE HCL 10 MG TABLET PO SCH ×2 (09:46→22:19)
[2020-07-31] MEDS: ASPIRIN 81 MG TABLET, ENT COATED PO SCH (09:46)
[2020-07-31] MEDS: HYDRALAZINE HCL 10 MG TABLET PO SCH ×4 (09:46→22:19)
[2020-07-31] MEDS: DIVALPROEX SODIUM 250 MG TABLET.DR PO SCH ×2 (09:47→18:19)
[2020-07-31] MEDS: FAMOTIDINE 20 MG TABLET PO SCH ×2 (09:47→18:19)
[2020-07-31] MEDS: FERROUS SULFATE 325 MG TABLET PO SCH (09:47)
[2020-07-31] MEDS: PIOGLITAZONE HCL 15 MG TABLET PO SCH (09:48)
[2020-07-31] MEDS: CHOLECALCIFEROL (D3) 1,000 UNIT (25 MCG) TABLET PO SCH (09:52)
[2020-07-31] MEDS ORDERED: FLUCONAZOLE 100 MG TABLET PO ONE ×2 (19:33→22:00)
--- NOTE | 2020-07-31 19:38 | ER Document Report ---
Doctor's Note Notes: 07/31/20 19:37 I rounded on the patient and examined. Patient still appears to have some skin breakdown along the perineal and lower back region. She is getting nystatin cream with a barrier ointment on top. I have instructed the nurse regarding returning. No obvious fluctuance or induration. Patient did have a repeat C. difficile testing but no active toxin. I did call and speak directly to microbiology that states that this is a "negative test". Given the consistent bowel movements I have ordered another test. I have also provided a one-time Diflucan dose by mouth.
[2020-07-31] MEDS: CLONIDINE HCL 0.1 MG TABLET PO SCH (22:18)
[2020-07-31] MEDS: ATORVASTATIN CALCIUM 20 MG TABLET PO SCH (22:19)
[2020-08-01] MEDS: GABAPENTIN 300 MG CAPSULE PO SCH ×3 (05:13→21:10)
[2020-08-01] MEDS: MULTIVITAMIN TABLET PO SCH (10:36)
[2020-08-01] MEDS: FAMOTIDINE 20 MG TABLET PO SCH ×2 (10:36→18:31)
[2020-08-01] MEDS: HYDRALAZINE HCL 10 MG TABLET PO SCH ×4 (10:36→21:09)
[2020-08-01] MEDS: POTASSIUM CHLORIDE 10 MEQ TABLET.ER PO SCH (10:36)
[2020-08-01] MEDS: CITALOPRAM HYDROBROMIDE 20 MG TABLET PO SCH (10:36)
[2020-08-01] MEDS: FERROUS SULFATE 325 MG TABLET PO SCH (10:36)
[2020-08-01] MEDS: ASPIRIN 81 MG TABLET, ENT COATED PO SCH (10:36)
[2020-08-01] MEDS: BUSPIRONE HCL 10 MG TABLET PO SCH ×2 (10:36→21:09)
[2020-08-01] MEDS: CARVEDILOL 12.5 MG TABLET PO SCH ×2 (10:36→21:11)
[2020-08-01] MEDS: CHOLECALCIFEROL (D3) 1,000 UNIT (25 MCG) TABLET PO SCH (10:36)
[2020-08-01] MEDS: DIVALPROEX SODIUM 250 MG TABLET.DR PO SCH ×2 (10:36→18:31)
[2020-08-01] MEDS: PIOGLITAZONE HCL 15 MG TABLET PO SCH (11:36)
[2020-08-01 14:40] LABS: C DIFFICILE GDH NEGATIVE (NEGATIVE)
[2020-08-01 18:05] LABS: ANION GAP 7 (5-19); BLOOD UREA NITROGEN 19 mg/dL (7-20); CALCIUM 9.5 mg/dL (8.4-10.2); CARBON DIOXIDE 27 mmol/L (22-30); CHLORIDE 105 mmol/L (98-107); GLUCOSE 82 mg/dL (75-110); POTASSIUM 4.5 mmol/L (3.6-5.0)
[2020-08-01 18:06] LABS: ABSOLUTE BASOPHILS # (AUTO) 0.1 10^3/uL (0.0-0.2); ABSOLUTE EOSINOPHILS # (AUTO) 0.1 10^3/uL (0.0-0.6); ABSOLUTE LYMPHOCYTES (AUTO) 1.4 10^3/uL (0.5-4.7); ABSOLUTE MONOCYTES (AUTO) 0.6 10^3/uL (0.1-1.4); ABSOLUTE NEUT (AUTO) 7.2 10^3/uL (1.7-8.2); BASOPHILS % (AUTO) 0.8 % (0-2); EOSINOPHILS % (AUTO) 0.8 % (0-6); HEMOGLOBIN 12.5 g/dL (12.0-15.5); LYMPHOCYTES % (AUTO) 14.7 % (13-45); MEAN CORPUSCULAR HEMOGLOBIN 30.2 pg (27.0-33.4); MEAN CORPUSCULAR HGB CONC 33.8 g/dL (32.0-36.0); MEAN CORPUSCULAR VOLUME 89 fl (80-97); MONOCYTES % (AUTO) 6.7 % (3-13); PLATELET COUNT 232 10^3/uL (150-450); RED BLOOD COUNT 4.15 10^6/uL (3.72-5.28); RED CELL DISTRIBUTION WIDTH 15.2 % (11.5-14.0); TOTAL CELLS COUNTED % (AUTO) 100 %; WHITE BLOOD COUNT 9.3 10^3/uL (4.0-10.5)
[2020-08-01] MEDS: VANCOMYCIN HCL INJ 500 MG VIAL PO SCH ×2 (18:31→22:11)
[2020-08-01] MEDS: CLONIDINE HCL 0.1 MG TABLET PO SCH (21:10)
[2020-08-01] MEDS: ATORVASTATIN CALCIUM 20 MG TABLET PO SCH (21:10)
[2020-08-02] MEDS: VANCOMYCIN HCL INJ 500 MG VIAL PO SCH ×4 (05:19→21:49)
[2020-08-02] MEDS: GABAPENTIN 300 MG CAPSULE PO SCH ×3 (05:20→21:21)
[2020-08-02] MEDS: FAMOTIDINE 20 MG TABLET PO SCH ×2 (09:31→17:19)
[2020-08-02] MEDS: DIVALPROEX SODIUM 250 MG TABLET.DR PO SCH ×2 (09:31→17:19)
[2020-08-02] MEDS: POTASSIUM CHLORIDE 10 MEQ TABLET.ER PO SCH (09:31)
[2020-08-02] MEDS: MULTIVITAMIN TABLET PO SCH (09:32)
[2020-08-02] MEDS: HYDRALAZINE HCL 10 MG TABLET PO SCH ×4 (09:32→21:21)
[2020-08-02] MEDS: CITALOPRAM HYDROBROMIDE 20 MG TABLET PO SCH (09:32)
[2020-08-02] MEDS: ASPIRIN 81 MG TABLET, ENT COATED PO SCH (09:32)
[2020-08-02] MEDS: FERROUS SULFATE 325 MG TABLET PO SCH (09:33)
[2020-08-02] MEDS: BUSPIRONE HCL 10 MG TABLET PO SCH ×2 (09:33→21:21)
[2020-08-02] MEDS: CARVEDILOL 12.5 MG TABLET PO SCH ×2 (09:33→21:21)
[2020-08-02] MEDS: CHOLECALCIFEROL (D3) 1,000 UNIT (25 MCG) TABLET PO SCH (09:34)
[2020-08-02] MEDS: PIOGLITAZONE HCL 15 MG TABLET PO SCH (09:39)
[2020-08-02] MEDS ORDERED: ACETAMINOPHEN 325 MG TABLET PO ONE (10:46)
[2020-08-02] MEDS ORDERED: HYDROCODONE/ACETAMINOPHEN 5-325 MG TABLET PO ONE ×2 (11:08→21:37)
--- NOTE | 2020-08-02 17:32 | ER Document Report ---
Doctor's Note Notes: 08/02/20 17:31 Patient seen and examined just now. Patient is sitting comfortably in the room eating dinner. She has no significant complaints. Heart regular rate and rhythm. Lungs are clear to auscultation bilaterally. Abdomen is soft nontender nondistended. Skin is warm and dry. I have discussed the case with the aids social worker and patient is currently awaiting placement.
[2020-08-02] MEDS: CLONIDINE HCL 0.1 MG TABLET PO SCH (21:20)
[2020-08-02] MEDS: ATORVASTATIN CALCIUM 20 MG TABLET PO SCH (21:21)
[2020-08-03] MEDS: GABAPENTIN 300 MG CAPSULE PO SCH ×3 (06:15→21:50)
[2020-08-03] MEDS: VANCOMYCIN HCL INJ 500 MG VIAL PO SCH ×4 (06:17→23:45)
[2020-08-03] MEDS: BUSPIRONE HCL 10 MG TABLET PO SCH ×2 (11:10→21:52)
[2020-08-03] MEDS: HYDRALAZINE HCL 10 MG TABLET PO SCH ×4 (11:10→21:59)
[2020-08-03] MEDS: MULTIVITAMIN TABLET PO SCH (11:11)
[2020-08-03] MEDS: CARVEDILOL 12.5 MG TABLET PO SCH ×2 (11:11→21:50)
[2020-08-03] MEDS: POTASSIUM CHLORIDE 10 MEQ TABLET.ER PO SCH (11:11)
[2020-08-03] MEDS: FAMOTIDINE 20 MG TABLET PO SCH ×2 (11:12→19:35)
[2020-08-03] MEDS: CHOLECALCIFEROL (D3) 1,000 UNIT (25 MCG) TABLET PO SCH (11:12)
[2020-08-03] MEDS: CITALOPRAM HYDROBROMIDE 20 MG TABLET PO SCH (11:12)
[2020-08-03] MEDS: DIVALPROEX SODIUM 250 MG TABLET.DR PO SCH ×2 (11:12→19:35)
[2020-08-03] MEDS: ASPIRIN 81 MG TABLET, ENT COATED PO SCH (11:15)
[2020-08-03] MEDS: FERROUS SULFATE 325 MG TABLET PO SCH (11:15)
[2020-08-03] MEDS: PIOGLITAZONE HCL 15 MG TABLET PO SCH (11:16)
--- NOTE | 2020-08-03 11:53 | ER Document Report ---
Doctor's Note Notes: 08/03/20 11:52 Patient reassessed just now. Patient has sitting in a chair comfortably. She is conversing normally and intelligently. She personally asked for me by name and does not seem to have significant memory issues today. She seems to be very lucid. She is in the middle of physical therapy. Physical therapist states that she is doing much better than she was a week ago. Patient states she is having some neck pain that she has chronically and would like the hydrocodone that she takes at home. I have also discussed the case again today with the social welfare research worker who is continuing to work on placement.
[2020-08-03] MEDS ORDERED: HYDROCODONE/ACETAMINOPHEN 5-325 MG TABLET PO ONE ×2 (11:54→21:17)
[2020-08-03] MEDS: CLONIDINE HCL 0.1 MG TABLET PO SCH (21:51)
[2020-08-03] MEDS: ATORVASTATIN CALCIUM 20 MG TABLET PO SCH (21:53)
[2020-08-04] MEDS ORDERED: IBUPROFEN 400 MG TABLET PO ONE (01:46)
[2020-08-04] MEDS ORDERED: OXYCODONE-ACETAMINOPHEN 5-325 MG TABLET PO ONE (01:47)
[2020-08-04] MEDS ORDERED: MELATONIN 5 MG TABLET PO ONE (01:47)
[2020-08-04] MEDS: VANCOMYCIN HCL INJ 500 MG VIAL PO SCH ×2 (05:37→09:52)
[2020-08-04 06:45] VITALS: BP 133/72
[2020-08-04] MEDS: GABAPENTIN 300 MG CAPSULE PO SCH ×2 (07:22→13:07)
[2020-08-04] MEDS ORDERED: HYDROCODONE/ACETAMINOPHEN 5-325 MG TABLET PO ONE (09:16)
[2020-08-04] MEDS: CHOLECALCIFEROL (D3) 1,000 UNIT (25 MCG) TABLET PO SCH (09:17)
[2020-08-04] MEDS: DIVALPROEX SODIUM 250 MG TABLET.DR PO SCH (09:17)
[2020-08-04] MEDS: ASPIRIN 81 MG TABLET, ENT COATED PO SCH (09:17)
[2020-08-04] MEDS: BUSPIRONE HCL 10 MG TABLET PO SCH (09:18)
[2020-08-04] MEDS: CARVEDILOL 12.5 MG TABLET PO SCH (09:18)
[2020-08-04] MEDS: HYDRALAZINE HCL 10 MG TABLET PO SCH ×2 (09:19→13:07)
[2020-08-04] MEDS: FAMOTIDINE 20 MG TABLET PO SCH (09:20)
[2020-08-04] MEDS: MULTIVITAMIN TABLET PO SCH (09:20)
[2020-08-04] MEDS: POTASSIUM CHLORIDE 10 MEQ TABLET.ER PO SCH (09:21)
[2020-08-04] MEDS: CITALOPRAM HYDROBROMIDE 20 MG TABLET PO SCH (09:21)
[2020-08-04] MEDS: FERROUS SULFATE 325 MG TABLET PO SCH (09:21)
[2020-08-04] MEDS: PIOGLITAZONE HCL 15 MG TABLET PO SCH (09:22)
[2020-08-04] MEDS ORDERED: GABAPENTIN 300 MG CAPSULE PO ONE (10:00)
--- NOTE | 2020-08-04 12:08 | ER Document Report ---
Doctor's Note Notes: 08/04/20 11:57 Patient was doing well except for arthralgia type pain. She was evaluated by Lashonda DUNCAN and advised patient may be discharged. She will try to get home health involved in this house. Also she gets all [facility] medications [facility] [address]. Attempts will be made to get a blister panel for all her medicines. Also patient is to be followed up by her personal doctor next Sunday. I spoke with the patient around 12 noon with Mark her nurse and patient is happy to be going home. She reports she is only lift here and [place] for 3 weeks and lives in [place] with her daughter moving in with her several years ago in [place]. Her daughter is Cammy Bright and she is a principal of the school and writes country music. Patient reports she was born here 75 years ago and the [facility]. She and her are now returning. Her is 80 years old. Patient does not even know the address since she only moved there 3 weeks ago. She otherwise is in good spirits and ready to go home. Physical exam vital signs within normal limits HEENT normocephalic atraumatic o ral pharyngeal within normal limits eyes are clear neck supple lungs clear to auscultation heart regular rate and rhythm abdomen benign extremities moves all extremities well [employer] patient awake cooperative oriented to self and situation psychiatric patient considering being on a social hold is in a happy effect at this time. 08/04/20 12:08
--- NOTE | 2020-08-04 20:12 | ER Document Report ---
Doctor's Note Notes: 08/04/20 20:09 Late documentation due to IT error yesterday. I saw patient during shift prior to my order of pain medication as patient was complaining of insomnia and chronic neck pain. Patient previously been on opioids for this pain which she has had for several years and seen doctors for previously. Patient had no m idline spinal tenderness, no neuro symptoms, no infectious symptoms, no nuchal rigidity. Pain is long musculature of right posterior back without any rash, normal inspection, no abnormal exam findings. I gave patient 2 doses of [place]a and 1 dose of ibuprofen 400 mg which she tolerated well gave dose of melatonin and patient had relief and slept comfortably throughout the rest of my shift.
== END 2020-08-04 13:09 | disposition other institution (70) ==
LOC: ER 09:50
DX: F03.91 Unspecified dementia, unspecified severity, with behavioral disturbance (principal); R41.0 Disorientation, unspecified; A04.72 Enterocolitis due to Clostridium difficile, not specified as recurrent; F11.20 Opioid dependence, uncomplicated; I10 Essential (primary) hypertension; R15.9 Full incontinence of feces; E11.9 Type 2 diabetes mellitus without complications; G47.00 Insomnia, unspecified; M54.2 Cervicalgia; G89.29 Other chronic pain; M25.50 Pain in unspecified joint; S30.814A Abrasion of vagina and vulva, initial encounter; S30.810A Abrasion of lower back and pelvis, initial encounter; X58.XXXA Exposure to other specified factors, initial encounter; R21 Rash and other nonspecific skin eruption; R53.1 Weakness; R62.7 Adult failure to thrive
CPT/HCPCS: 99285; 96372; 96360; 36415; 84132; 85025; 80048; 81001; 87493 ×2; 87324; 87449; A9270 ×222; J3486; J3370 ×12; J7040; J3490